=== PATIENT | male | born 1930 | race Caucasian/White ===

== ENCOUNTER → 2016-07-28 | Outpatient (CLI) | payer BC ==
[~2016-07-28] MED LIST: ALBU18002 INH; ALBU1AER9 INH; ASPI81TA28 PO; BENZ100C18 PO; CALC200T PO; CHOL100010 PO; DOCU100C PO; FINA5TAB4 PO; FLM4 PO; LPD600 PO; LPT10 PO; LSX20 PO; MRLP17X PO; MULT-845 PO; NITRSPR6 BU; NUTR-977 PO; PRD20 PO; RIVA1TAB4 PO; SALI1SPR3; SYMIN INH; TYLOTC500 PO; WARF1TAB PO; WARF4TAB44 PEG; ZTA10 PO
== END | disposition home or self-care (01) ==
LOC: C.RDSM 13:10
PROVIDERS: ATTEND Physical Medicine & Rehabilitation Sports Medicine
DX: T84.84XA Pain due to internal orthopedic prosthetic devices, implants and grafts, initial encounter (principal); Z96.642 Presence of left artificial hip joint; M17.9 Osteoarthritis of knee, unspecified; Y79.2 Prosthetic and other implants, materials and accessory orthopedic devices associated with adverse incidents

== ENCOUNTER 2016-08-10 12:45 | Inpatient (IN) | payer BC, OTHER ==
[~2016-08-10] VITALS: Ht 185.4 cm; Wt 73.9 kg
[~2016-08-10 12:45] MED LIST changes: -ALBU18002 INH; -BENZ100C18 PO; -LSX20 PO; -NUTR-977 PO; -PRD20 PO; -RIVA1TAB4 PO; -SYMIN INH
[2016-08-10 12:51] VITALS: Ht 185.4 cm; Wt 73.9 kg
[2016-08-10] MEDS ORDERED: SODIUM CHLORIDE 0.9% 500ML 500 ML IV STA (13:47)
--- NOTE | 2016-08-10 13:49 | EMERGENCY ROOM VISIT NOTE ---
History Report prepared by Kristine: Chante Sauer Under the Supervision of: Dr. Albert Dale M.D. First contact with patient: 13:39 Chief Complaint: SHORTNESS OF BREATH Stated Complaint: CHRONIC COUGH, SOB, DIZZY, FATIGUE Nursing Triage Summary: Triage Note: Pt reports shortness of breath and dry cough x 1 week. pt reports using inahler at home with no relief. pt reports lower back pain "that is indepdently of what i am here for." History of Present Illness The patient is an 86 year old male who presents to the Emergency Room with complaints of worsening shortness of breath for the past 1 week. He is accompanied by his . He states he has a chronic cough but reports his breathing has been worsening recently. His regular inhaler has provided no relief. He also complains of dizziness, fatigue and low back pain, but reports his back pain is chronic. He states "I just have no energy". He denies any recent melena or hematochezia. He saw his PCP, Dr. Chris, recently and underwent some medication changes, stating he was placed on Celebrex. The patient uses a bi-pap machine at night but denies using any Oxygen regularly. He reports he has been finding it difficult to eat recently as well, stating he has no appetite. He denies any recent headaches, falls or trauma. 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 A total of 10 systems reviewed and were otherwise negative. 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 Family History FHx: pneumonia Heart disease Social History Smoking Status: Never Smoker Alcohol Use: none Drug Use: none Marital Status: Housing Status: lives with family Occupation Status: retired Current/Historical Medications Scheduled Acetaminophen (Tylenol), 100 MG PO BID Albuterol Sulfate (Proair Respiclick), 2 PUFFS INH DAILY Aspirin (Aspirin Ec), 81 MG PO DAILY Atorvastatin (Atorvastatin Calcium), 10 MG PO DAILY Calcium Carbonate-Vitamin D (Oscal 500/200 D-3), 1 TAB PO BID Cholecalciferol (Vitamin D), 4,000 UNITS PO DAILY Docusate Sodium (Stool Softener), 200 MG PO BID Ezetimibe (Zetia), 10 MG PO DAILY Finasteride (Proscar), 5 MG PO DAILY Multiple Vitamins W/ Minerals (Centrum Silver Adult 50+), 1 TAB PO DAILY Rivaroxaban (Xarelto), 20 MG PO DAILY Saline (Saline Nasal [place]), 1 SPRAY NA HS Tamsulosin HCl (Tamsulosin HCl), 0.4 MG PO DAILY Scheduled PRN Nitroglycerin (Nitrolingual 60 [place]), 1 SPRAY BU UD PRN for Chest Pain Polyethylene (Miralax), 17 GM PO DAILY PRN for Constipation Allergies Coded Allergies: Adhesives (Verified Allergy, Mild, RASH, 10/27/14) Mercury (Verified Allergy, Unknown, rash, 10/27/14) patient Naproxen (Verified Allergy, Unknown, unknown, 10/27/14) patient Physical Exam Vital Signs Date Time Temp Pulse Resp B/P Pulse Ox O2 Delivery O2 Flow Rate FiO2 08/10/16 14:24 70 18 154/55 95 Room Air 08/10/16 13:27 97 Nasal Cannula 2.0 08/10/16 13:27 91 Room Air 08/10/16 13:27 65 08/10/16 12:51 36.4 93 20 155/63 97 Room Air Physical Exam GENERAL: Patient is elderly and chronically unwell appearing. HEENT: No acute trauma, normocephalic atraumatic, mucous membranes dry, no nasal congestion, no scleral icterus. NECK: No stridor, no adenopathy, no meningismus, trachea is midline. LUNGS: No dyspnea. Clear to auscultation and equal bilaterally. No wheeze, no rhonchi. HEART: Regular rate, irregular rhythm. No murmurs, rubs, gallops appreciated. ABDOMEN: Soft, nontender, bowel sounds positive, no masses appreciated, no peritonitis. BACK: No midline tenderness, no CVA tenderness EXTREMITIES: Normal motion all extremities, no cyanosis, no edema. NEUROLOGIC: Alert and oriented, no acute motor or sensory deficits, no focal weakness, cranial nerves grossly intact. SKIN: Poor skin turgor. No rash, no jaundice, no diaphoresis. Medical Decision & Procedures ER Provider Diagnostic Interpretation: This X-Ray was reviewed and interpreted by myself and the radiologist. CHEST ONE VIEW PORTABLE IMPRESSION: Diffuse interstitial and vascular thickening with patchy densities within the right lung and trace bilateral pleural effusions. This most likely represents moderate pulmonary edema. A pneumonia could also this similar appearance but is considered less likely. Recommend follow-up to resolution. Electronically signed by: Augustine Karimi M.D. 08/10/2016 2:45 PM Laboratory Results 08/10/16 14:10 Red Blood Count 2.99, Mean Corpuscular Volume 111.4, Mean Corpuscular Hemoglobin 36.1, Mean Corpuscular Hemoglobin Concent 32.4, Mean Platelet Volume 11.0, Neutrophils (%) (Auto) 69.9, Lymphocytes (%) (Auto) 19.9, Monocytes (%) ( Auto) 6.6, Eosinophils (%) (Auto) 1.8, Basophils (%) (Auto) 0.3, Neutrophils # ( Auto) 4.80, Lymphocytes # (Auto) 1.36, Monocytes # (Auto) 0.45, Eosinophils # ( Auto) 0.12, Basophils # (Auto) 0.02 08/10/16 14:10 Test 08/10/16 14:05 08/10/16 14:10 Urine Color DK YELLOW Urine Appearance CLEAR (CLEAR) Urine pH 5.5 (4.5-7.5) Urine Specific [place] 1.020 (1.000-1.030) Urine Protein NEG (NEG) Urine Glucose (UA) NEG (NEG) Urine Ketones NEG (NEG) Urine Occult Blood NEG (NEG) Urine Nitrite NEG (NEG) Urine Bilirubin NEG (NEG) Urine Urobilinogen NEG (NEG) Urine Leukocyte Esterase NEG (NEG) Urine WBC (Auto) 0 /hpf (0-5) Urine RBC (Auto) 0-4 /hpf (0-4) Urine Hyaline Casts (Auto) 0 /lpf (0-5) Urine Epithelial Cells (Auto) 0-5 /lpf (0-5) Urine Bacteria (Auto) NEG (NEG) White Blood Count 6.85 K/uL (4.8-10.8) Red Blood Count 2.99 M/uL (4.7-6.1) Hemoglobin 10.8 g/dL (14.0-18.0) Hematocrit 33.3 % (42-52) Mean Corpuscular Volume 111.4 fL (80-100) Mean Corpuscular Hemoglobin 36.1 pg (25-34) Mean Corpuscular Hemoglobin Concent 32.4 g/dl (32-36) Platelet Count 152 K/uL (130-400) Mean Platelet Volume 11.0 fL (7.4-10.4) Neutrophils (%) (Auto) 69.9 % Lymphocytes (%) (Auto) 19.9 % Monocytes (%) (Auto) 6.6 % Eosinophils (%) (Auto) 1.8 % Basophils (%) (Auto) 0.3 % Neutrophils # (Auto) 4.80 K/uL (1.4-6.5) Lymphocytes # (Auto) 1.36 K/uL (1.2-3.4) Monocytes # (Auto) 0.45 K/uL (0.11-0.59) Eosinophils # (Auto) 0.12 K/uL (0-0.5) Basophils # (Auto) 0.02 K/uL (0-0.2) RDW Standard Deviation 64.3 fL (36.4-46.3) RDW Coefficient of Variation 16.2 % (11.5-14.5) Immature Granulocyte % (Auto) 1.5 % Immature Granulocyte # (Auto) 0.10 K/uL (0.00-0.02) Nucleated RBC Absolute Count (auto) 0.07 K/uL (0-0) Nucleated Red Blood Cells % 1.1 % Polychromasia 1+ Macrocytosis PRESENT Prothrombin Time 12.7 SECONDS (9.0-12.0) Prothromb Time International Ratio 1.2 (0.9-1.1) Activated Partial Thromboplast Time 28.7 SECONDS (21.0-31.0) Partial Thromboplastin Ratio 1.1 Anion Gap 9.0 mmol/L (3-11) Est Creatinine Clear Calc Drug Dose 46.4 ml/min Estimated GFR () 62.6 Estimated GFR (Non- 54.0 BUN/Creatinine Ratio 18.3 (10-20) Calcium Level 8.8 mg/dl (8.5-10.1) Phosphorus Level 2.7 mg/dl (2.5-4.9) Magnesium Level 2.2 mg/dl (1.8-2.4) Total Bilirubin 1.0 mg/dl (0.2-1) Direct Bilirubin 0.3 mg/dl (0-0.2) Aspartate Amino Transf (AST/SGOT) 40 U/L (15-37) Alanine Aminotransferase (ALT/SGPT) 29 U/L (12-78) Alkaline Phosphatase 110 U/L (45-117) Total Creatine Kinase 39 U/L (39-308) Creatine Kinase MB 1.4 ng/ml (0.5-3.6) Creatine Kinase MB Ratio 3.6 (0-3.0) Troponin I 0.021 ng/ml (0-0.045) Pro-B-Type Natriuretic Peptide 8053 pg/ml (0-1800) Total Protein 7.4 gm/dl (6.4-8.2) Albumin 2.5 gm/dl (3.4-5.0) Lipase 84 U/L (73-393) Laboratory results as reviewed by me. Medications Administered Medications (Trade) Dose Ordered Sig/Melissa Route Start Time Stop Time Status Last Admin Dose Admin Sodium Chloride (Nss 500ml) 500 ml @ 999 mls/hr Q31M STAT IV 08/10/16 13:47 08/10/16 14:17 DC 08/10/16 14:20 999 MLS/HR ECG Indication: SOB/dyspnea Rate (beats per minute): 68 Rhythm: other (ventricularly paced) Findings: no acute ischemic change, no ectopy ED Course 1341: The patient was evaluated in room A10. A complete history and physical exam was performed. 1347: NSS 500 ml @ 999 mls/hr IV. 1510: I reevaluated the patient. His Oxygen was approximately 89% on room air on initial reevaluation. Oxygen provided good improvement of this. I discussed the patients results and his states she thinks the patient needs to be kept in the hospital for further evaluation. I will contact the hospital medicine team. 1528: I discussed the patients case with Dr. Garcia, [facility] Hospitalist. The patient will be further evaluated. Medical Decision Differential: Sepsis, Infectious (UTI/Pneumonia/Meningitis/etc), Metabolic/ Electrolyte Abnormality, Cardiac, Hepatic, Endocrine, Toxicologic, Neurologic, amongst other pathologies entertained. 86 yr old male who is malnutritioned and appears intravascularly depleted arrives for shob and weakness. Elderly and chronically unwell appearing. CXR with pulmonary edema thus given small bolus of fluid at 500 cc and will hold on further hydration. Labs look ok currently. He is too weak to get around at home and with shob suspect pulm edema the cause, though why the sudden edema unclear. Will bring in for further evaluation and monitoring at request of family. Consults Time Called: 1519 Consulting Physician: Dr. Garcia, [facility] Hospitalist Returned Call: 1528 I discussed the patients case with Dr. Garcia [facility] Hospitalist. The patient will be further evaluated. Impression Primary Impression: Pulmonary edema Scribe Attestation The scribe's documentation has been prepared under my direction and personally reviewed by me in its entirety. I confirm that the note above accurately reflects all work, treatment, procedures, and medical decision making performed by me. Departure Information Dispostion Being Evaluated By Hospitalist Referrals Colby Chris M.D. (PCP) Patient Instructions My [facility] Problem Qualifiers Primary Impression: Pulmonary edema Chronicity: acute Qualified Codes: J81.0 - Acute pulmonary edema
[2016-08-10 14:28] LABS: BASO % 0.3 %; BASO ABS # 0.02 K/uL (0-0.2); EOS % 1.8 %; HEMATOCRIT 33.3 % (42-52); IG% 1.5 %; LYMPH % 19.9 %; LYMPH ABS # 1.36 K/uL (1.2-3.4); MEAN CELL VOLUME 111.4 fL (80-100); MEAN CORPUSCULAR HEMOGLOBIN 36.1 pg (25-34); MEAN CORPUSCULAR HGB CONC 32.4 g/dl (32-36); MONO % 6.6 %; NEUT % 69.9 %; PLATELET COUNT 152 K/uL (130-400); RED BLOOD COUNT 2.99 M/uL (4.7-6.1); WHITE BLOOD COUNT 6.85 K/uL (4.8-10.8)
[2016-08-10 14:37] LABS: INR 1.2 (0.9-1.1); PARTIAL THROMBOPLASTIN RATIO 1.1; PROTHROMBIN TIME (PATIENT) 12.7 SECONDS (9.0-12.0)
[2016-08-10 14:38] LABS: URINE APPEARANCE CLEAR (CLEAR); URINE BILIRUBIN NEG (NEG); URINE COLOR DK YELLOW; URINE EPITHELIAL CELL AUTO 0-5 /lpf (0-5); URINE NITRITE NEG (NEG); URINE PH 5.5 (4.5-7.5); UROBILINOGEN NEG (NEG); ZZUR CULT IF INDIC CLEAN CATCH NO
[2016-08-10 14:40] LABS: MANUAL MICROSCOPIC REQUIRED? NO; REVIEW REQ? NO
[2016-08-10 14:44] LABS: BUN/CREATININE RATIO 18.3 (10-20); CALCIUM 8.8 mg/dl (8.5-10.1); CREATININE 1.2 mg/dl (0.60-1.40); MAGNESIUM 2.2 mg/dl (1.8-2.4); POTASSIUM 4.2 mmol/L (3.5-5.1)
[2016-08-10] MEDS ORDERED: RIVA1TAB4 PO (14:45)
[2016-08-10] MEDS ORDERED: ALBU18002 INH (14:45)
[2016-08-10] MEDS ORDERED: CHOL100010 PO (14:45)
--- NOTE | 2016-08-10 14:46 | DIAGNOSTIC IMAGING REPORT ---
CHEST ONE VIEW PORTABLE HISTORY: Generalized Weakness COMPARISON: Chest 10/27/2014. FINDINGS: No pneumothorax. The heart is mildly enlarged. There are poststernotomy changes and a left-sided dual-chamber pacemaker. Trace bilateral pleural effusions. Diffuse interstitial and vascular thickening with patchy densities within the right lung. This has developed in the interval. Partially visualized cervical spinal fusion hardware. IMPRESSION: Diffuse interstitial and vascular thickening with patchy densities within the right lung and trace bilateral pleural effusions. This most likely represents moderate pulmonary edema. A pneumonia could also this similar appearance but is considered less likely. Recommend follow-up to resolution. Electronically signed by: Augustine Karimi M.D. 08/10/2016 2:45 PM Dictated Date/Time: 08/10/2016 2:42 PM
[2016-08-10 14:47] LABS: CKMB/CK RATIO 3.6 (0-3.0); PHOSPHORUS 2.7 mg/dl (2.5-4.9)
[2016-08-10 14:52] LABS: COMPLETE YES; POLYCHROMASIA 1+
[2016-08-10] MEDS ORDERED: NITROGLYCERIN SL SPR 4.9 GM BTL SL PRN (16:15)
[2016-08-10] MEDS ORDERED: FUROSEMIDE INJ 40 MG in SYRINGE 0 ML IV ONE (16:15)
[2016-08-10] MEDS ORDERED: POLYETHYLENE (MIRALAX) 17 GM PACK PO PRN ×2 (16:15→16:30)
--- NOTE | 2016-08-10 16:20 | History and Physical ---
History & Physical Date & Time of Service: Aug 10, 2016 at 16:20 Chief Complaint: Chronic Cough, Sob, Dizzy, Fatigue Primary Care Physician: Colby Cho M.D. 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 Status: Chronic (10) OSTEOPOROSIS NOS Status: Chronic (11) SPINAL STENOSIS-LUMBAR Status: Chronic Family History FHx: pneumonia Heart disease Social History Smoking Status: Never Smoker Drug Use: none Marital Status: Occupational Status: retired Immunizations History of Influenza Vaccine: Yes History of Tetanus Vaccine?: Unknown History of Pneumococcal: Yes History of Hepatitis B Vaccine: Unknown Multi-Drug Resistant Organisms History of MDRO: No Allergies Coded Allergies: Adhesives (Verified Allergy, Mild, RASH, 10/27/14) Mercury (Verified Allergy, Unknown, rash, 10/27/14) patient Naproxen (Verified Allergy, Unknown, unknown, 10/27/14) patient Home Medications Scheduled Acetaminophen (Tylenol), 100 MG PO BID Albuterol Sulfate (Proair Respiclick), 2 PUFFS INH DAILY Aspirin (Aspirin Ec), 81 MG PO DAILY Atorvastatin (Atorvastatin Calcium), 10 MG PO DAILY Calcium Carbonate-Vitamin D (Oscal 500/200 D-3), 1 TAB PO BID Cholecalciferol (Vitamin D), 4,000 UNITS PO DAILY Docusate Sodium (Stool Softener), 200 MG PO BID Ezetimibe (Zetia), 10 MG PO DAILY Finasteride (Proscar), 5 MG PO DAILY Multiple Vitamins W/ Minerals (Centrum Silver Adult 50+), 1 TAB PO DAILY Rivaroxaban (Xarelto), 20 MG PO DAILY Saline (Saline Nasal [place]), 1 SPRAY NA HS Tamsulosin HCl (Tamsulosin HCl), 0.4 MG PO DAILY Scheduled PRN Nitroglycerin (Nitrolingual 60 [place]), 1 SPRAY BU UD PRN for Chest Pain Polyethylene (Miralax), 17 GM PO DAILY PRN for Constipation Physical Exam Vital Signs Date Time Temp Pulse Resp B/P Pulse Ox O2 Delivery O2 Flow Rate FiO2 08/10/16 14:24 70 18 154/55 95 Room Air 08/10/16 13:27 97 Nasal Cannula 2.0 08/10/16 13:27 91 Room Air 08/10/16 13:27 65 08/10/16 12:51 36.4 93 20 155/63 97 Room Air Diagnostics Laboratory Results Results Past 24 Hours Test 08/10/16 14:05 08/10/16 14:10 Range/Units Urine Color DK YELLOW Urine Appearance CLEAR CLEAR Urine pH 5.5 4.5-7.5 Urine Specific [place] 1.020 1.000-1.030 Urine Protein NEG NEG Urine Glucose (UA) NEG NEG Urine Ketones NEG NEG Urine Occult Blood NEG NEG Urine Nitrite NEG NEG Urine Bilirubin NEG NEG Urine Urobilinogen NEG NEG Urine Leukocyte Esterase NEG NEG Urine WBC (Auto) 0 0-5 /hpf Urine RBC (Auto) 0-4 0-4 /hpf Urine Hyaline Casts (Auto) 0 0-5 /lpf Urine Epithelial Cells (Auto) 0-5 0-5 /lpf Urine Bacteria (Auto) NEG NEG White Blood Count 6.85 4.8-10.8 K/uL Red Blood Count 2.99 4.7-6.1 M/uL Hemoglobin 10.8 14.0-18.0 g/dL Hematocrit 33.3 42-52 % Mean Corpuscular Volume 111.4 80-100 fL Mean Corpuscular Hemoglobin 36.1 25-34 pg Mean Corpuscular Hemoglobin Concent 32.4 32-36 g/dl Platelet Count 152 130-400 K/uL Mean Platelet Volume 11.0 7.4-10.4 fL Neutrophils (%) (Auto) 69.9 % Lymphocytes (%) (Auto) 19.9 % Monocytes (%) (Auto) 6.6 % Eosinophils (%) (Auto) 1.8 % Basophils (%) (Auto) 0.3 % Neutrophils # (Auto) 4.80 1.4-6.5 K/uL Lymphocytes # (Auto) 1.36 1.2-3.4 K/uL Monocytes # (Auto) 0.45 0.11-0.59 K/uL Eosinophils # (Auto) 0.12 0-0.5 K/uL Basophils # (Auto) 0.02 0-0.2 K/uL RDW Standard Deviation 64.3 36.4-46.3 fL RDW Coefficient of Variation 16.2 11.5-14.5 % Immature Granulocyte % (Auto) 1.5 % Immature Granulocyte # (Auto) 0.10 0.00-0.02 K/uL Nucleated RBC Absolute Count (auto) 0.07 0-0 K/uL Nucleated Red Blood Cells % 1.1 % Polychromasia 1+ Macrocytosis PRESENT Prothrombin Time 12.7 9.0-12.0 SECONDS Prothromb Time International Ratio 1.2 0.9-1.1 Activated Partial Thromboplast Time 28.7 21.0-31.0 SECONDS Partial Thromboplastin Ratio 1.1 Sodium Level 139 136-145 mmol/L Potassium Level 4.2 3.5-5.1 mmol/L Chloride Level 105 98-107 mmol/L Carbon Dioxide Level 25 21-32 mmol/L Anion Gap 9.0 3-11 mmol/L Blood Urea Nitrogen 22 7-18 mg/dl Creatinine 1.20 0.60-1.40 mg/dl Est Creatinine Clear Calc Drug Dose 46.4 ml/min Estimated GFR () 62.6 Estimated GFR (Non- 54.0 BUN/Creatinine Ratio 18.3 10-20 Random Glucose 95 70-99 mg/dl Calcium Level 8.8 8.5-10.1 mg/dl Phosphorus Level 2.7 2.5-4.9 mg/dl Magnesium Level 2.2 1.8-2.4 mg/dl Total Bilirubin 1.0 0.2-1 mg/dl Direct Bilirubin 0.3 0-0.2 mg/dl Aspartate Amino Transf (AST/SGOT) 40 15-37 U/L Alanine Aminotransferase (ALT/SGPT) 29 12-78 U/L Alkaline Phosphatase 110 45-117 U/L Total Creatine Kinase 39 39-308 U/L Creatine Kinase MB 1.4 0.5-3.6 ng/ml Creatine Kinase MB Ratio 3.6 0-3.0 Troponin I 0.021 0-0.045 ng/ml Pro-B-Type Natriuretic Peptide 8053 0-1800 pg/ml Total Protein 7.4 6.4-8.2 gm/dl Albumin 2.5 3.4-5.0 gm/dl Lipase 84 73-393 U/L Impression Assessment and Plan admit #[id number]
[2016-08-10] MEDS ORDERED: IV FLUIDS COMPLETED PRN (16:30)
[2016-08-10] MEDS ORDERED: ALUMINUM/MAGNESIUM/SIMETH (MAALOX MAX) 30 ML UDC PO PRN (16:30)
[2016-08-10] MEDS ORDERED: MAGNESIUM HYDROXIDE SUSP 30 ML UDC PO PRN (16:30)
[2016-08-10] MEDS ORDERED: ONDANSETRON INJ 2 MG/ML 2 ML VIAL IV PRN (16:30)
[2016-08-10] MEDS ORDERED: FUROSEMIDE 40 MG/4 ML VIAL ONE (17:16)
--- NOTE | 2016-08-10 17:21 | HISTORY & PHYSICAL EXAMINATION ---
DATE OF ADMISSION: 08/10/2016 CHIEF COMPLAINT: Cough and weakness. HISTORY OF PRESENT ILLNESS: The patient is a very pleasant 86-year-old male accompanied by his significant other who notes that over about the last 2 weeks, he has just generally been feeling worse. He has got a dry cough. His breathing does not feel right, although he is hard pressed to truly call it shortness of breath. He denies orthopnea but does note that he is always wearing his BiPAP whenever he is lying down. He notes a little bit of edema in his legs that is new but no weight gain and in fact if anything, he is worried about losing weight. He has had a poor appetite. He has had no fevers, chills, or sweats save 1 chill a couple of weeks ago, whenever he was out on a very cold day for an appointment but no other chills or sweats. He does note he has been running a low-grade temperature of about 100 and otherwise has just generally been feeling rundown. REVIEW OF SYSTEMS: Otherwise negative except for as above. PAST MEDICAL HISTORY: Includes chronic kidney disease, probably around stage III with a baseline creatinine of 1.3, atrial fibrillation, coronary artery disease status post CABG, hyperlipidemia, BPH, osteoporosis, lumbar spinal stenosis, obstructive sleep apnea, on BiPAP, glaucoma, actinic keratoses, basal cell carcinoma of the skin, chronic back pain, peripheral vascular disease, polyneuropathy, hemorrhoids and constipation with prior fecal impactions. PAST SURGICAL HISTORY: Includes CABG, back surgeries, pacemaker placement. SOCIAL HISTORY: Lives at the [facility] with his . No tobacco. No significant alcohol, no drugs. ALLERGIES: INCLUDE ADHESIVES, MERCURY AND NAPROSYN. CURRENT MEDICATIONS: Albuterol 90 mcg as needed for shortness of breath or wheeze, aspirin 81 mg daily, Lipitor 10 mg daily. He had just recently been on Celebrex for about 3 weeks, stopped that about 4 days ago as he thought it might be the culprit in his shortness of breath. Centrum Silver 1 tab daily, Zetia 10 mg daily, Proscar 5 mg daily, vitamin D3 4000 international units daily, nitroglycerin spray under the tongue as needed for angina, [place] plus D 500/200 one tab b.i.d., Tylenol 500 mg p.r.n. pain, Colace 100 mg daily, Flomax 0.4 mg daily, and Xarelto 20 mg daily. FAMILY HISTORY: His brother had diabetes. Dad had heart disease. PHYSICAL EXAMINATION: VITAL SIGNS: Temp 36.4, pulse 93, respiratory rate 20, blood pressure 155/63, 97% on room air. GENERAL: He is awake, alert, oriented x3, fatigued, but otherwise in no acute distress. HEENT: Normocephalic, atraumatic. Mucous membranes are moist. CARDIOVASCULAR: Irregularly irregular, somewhat distant but no rubs, murmurs, or gallops. LUNGS: Show scattered rales throughout. No real pattern to it. He has got a reasonable air entry, maybe slightly diminished bibasilar. No accessory muscle use. No respiratory distress and he does have a dry cough during the interview. ABDOMEN: Soft, nondistended, nontender, no masses or organomegaly. EXTREMITIES: Without cyanosis or clubbing. He has trace edema with slightly tight skin, suggesting a degree of acuity. SKIN: He has no skin ulcerations. NEUROLOGIC: Shows cranial nerves II-XII to be grossly intact. Gross motor and sensory are intact. MUSCULOSKELETAL: Yields no gross lesions. MENTAL STATE: Shows good recent and remote recall. Normal mood and affect. Good judgment and insight. LABS AND DIAGNOSTICS: CBC shows a white count of 6.85, hemoglobin 10.8, platelets 152, MCV of 111, although he had a B12 about a year ago that was greater than 1000, eosinophils only 1.8%. Complete metabolic panel with sodium 139, potassium 4.2, chloride 105, CO2 25, BUN 22, creatinine 1.2, calcium 8.8, glucose 95. Phos 2.7, mag 2.2, bilirubin of 1, direct of 0.3, AST of 40, ALT of 29, alk phos 110. CK total of 39 with an MB of 1.4. Troponin 0.021. BNP of 8053, total protein 7.4, albumin 2.5, lipase 84. PT of 12.7 with an INR of 1.2. PTT 28.7. Urinalysis: Dark yellow, clear. Specific gravity 1.020. EKG is paced. Chest x-ray shows sternotomy changes and a left-sided pacemaker. Trace bilateral pleural effusions, diffuse interstitial and vascular thickening with patchy densities in the right lung that appears new compared to his previous, which was about 2 years ago. Radiology conclusion was pulmonary edema, which seems to fit the most to my review as well, although certainly is concerning also for possible interstitial pattern. ASSESSMENT AND PLAN: 1. Cough, weakness and malaise "on paper" with his chest x-ray fitting most with pulmonary edema and elevated BNP of 8000 and his cardiac history as well as his chronic kidney disease. It seems most fitting that this would be an acute exacerbation of what appears to be chronic diastolic congestive heart failure; however, he certainly does not look as short of breath as his chest x-ray would suggest, nor is he as hypoxic as I would think he would be with his chest x-ray, nor is he as edematous as I would think he would be and his lung findings are a little bit more scattered than focal rales. I discussed with the patient the concern would be pulmonary edema versus more of an interstitial lung disease or allergic pneumonitis, possibly related to the Celebrex. We discussed in terms of raw probabilities, pulmonary edema from diastolic congestive heart failure would be far more likely and then we discussed further next steps in diagnosis versus treatment. After careful discussion, we decided to initiate a therapeutic trial of Lasix. Given that his physical exam findings are rather unremarkable, we will give him 40 of Lasix now and in addition to having him reexamined in the morning, we will check a followup BNP and follow up basic metabolic panel and follow up chest x-ray. If it is very clear the Lasix has made a difference, then this will be quite consistent with congestive heart failure. Continue to treat, get an echocardiogram and manage from there as appropriate; however, if it does not really show any significant change after diuretics, I would suggest a CT of the chest to look at the lung parenchyma more clearly. He agrees with this approach. 2. Coronary artery disease. Continue his home meds. He does not show any significant findings of angina at this time. 3. Atrial fibrillation. His rate is controlled. He is anticoagulated on Xarelto. 4. Chronic kidney disease around stage III. Continue to follow with the diuretics. 5. Weight loss from poor p.o. intake. Nutrition consult. 6. Macrocytic anemia. Overall this appears stable to his previous hemoglobins with 1 outlier a year or two ago. His MCV is elevated, but he had a B12 checked that was greater than 1000, so I suspect this is chronic. 7. Deep venous thrombosis prophylaxis. Anticoagulation with Xarelto. 8. Mildly elevated AST and direct bilirubin. Follow up as an outpatient. 9. Mild to moderate protein-calorie malnutrition as manifested by an albumin of 2.5 and his weight loss. Nutrition consult. GE[place]ED
[2016-08-10 18:29] VITALS: BP 164/77; PULSE 62; TEMP 36.7; O2SAT 94
[2016-08-10] MEDS: RIVAROXABAN 10 MG TAB PO SCH (19:53)
[2016-08-10] MEDS ORDERED: ALBUTEROL HFA 8 GM INHALER INH PRN (20:15)
[2016-08-10] MEDS: SODIUM CHLORIDE 0.65% NA SOLN 45 ML (OCEAN) SCH (20:48)
[2016-08-10] MEDS: DOCUSATE SODIUM 100 MG CAP PO SCH (20:48)
[2016-08-10] MEDS: CALCIUM CARBONATE 1250MG TAB PO SCH (20:48)
[2016-08-10] MEDS ORDERED: ACETAMINOPHEN 500 MG TAB PO SCH (21:00)
[2016-08-11 00:17] VITALS: BP 169/66; PULSE 66; TEMP 37.2; O2SAT 91
[2016-08-11] MEDS: ALBUTEROL HFA 8 GM INHALER INH SCH (07:45)
[2016-08-11] MEDS: CALCIUM CARBONATE 1250MG TAB PO SCH ×2 (07:45→20:25)
[2016-08-11] MEDS: DOCUSATE SODIUM 100 MG CAP PO SCH ×2 (07:46→20:25)
[2016-08-11] MEDS: ASPIRIN 81 MG ECTAB PO SCH (07:46)
[2016-08-11] MEDS: ATORVASTATIN 10 MG TAB PO SCH (07:47)
[2016-08-11] MEDS: FINASTERIDE 5 MG TAB PO SCH (07:47)
[2016-08-11] MEDS: EZETIMIBE 10MG TAB PO SCH (07:47)
[2016-08-11] MEDS: CEROVITE ADV FORMULA TAB PO SCH (07:48)
[2016-08-11] MEDS: TAMSULOSIN HCL 0.4 MG CAP PO SCH (07:48)
[2016-08-11] MEDS: CHOLECALCIFEROL 1000 INTER.UNIT TAB PO SCH (07:48)
[2016-08-11 07:55] VITALS: BP 152/74; PULSE 65; TEMP 36.3; O2SAT 94
[2016-08-11 08:22] LABS: BUN/CREATININE RATIO 16.8 (10-20); CALCIUM 8.8 mg/dl (8.5-10.1); CREATININE 1.2 mg/dl (0.60-1.40); POTASSIUM 3.8 mmol/L (3.5-5.1)
--- NOTE | 2016-08-11 09:22 | DIAGNOSTIC IMAGING REPORT ---
CHEST 2 VIEWS ROUTINE CLINICAL HISTORY: cough, sob, f/u pulmonary edema pattern dyspnea COMPARISON STUDY: 08/10/2016 FINDINGS: Improving radiographic components of congestive failure versus pulmonary edema. Cardiac size slightly diminished. Pulmonary vasculature improved in prominence. IMPRESSION: Mildly improved components of chronic pulmonary edema versus congestive failure Electronically signed by: Ramana Michelle M.D. 08/11/2016 9:21 AM Dictated Date/Time: 08/11/2016 9:20 AM
[2016-08-11 09:31] LABS: INFLUENZA A PCR Neg for Influ A (NEG); INFLUENZA B PCR Neg for Influ B (NEG)
[2016-08-11 09:55] VITALS: O2SAT 94
--- NOTE | 2016-08-11 11:56 | Hospitalist Progress Note ---
Hospitalist Progress Note Date of Service Aug 11, 2016. (Mary Chacon PA-C) Subjective Pt evaluation today including: conversation w/ patient, physical exam, chart review, lab review, review of studies, review of inpatient medication list Pain: Mild, arthritic PO Intake: Good Voiding: no voiding problems The patient was seen and examined this morning. Pt reports his breathing is essentially unchanged, along with continued dry cough, worse with exertion, wearing Bipap at night. Still with complaints of weakness and mild dizziness. The patient got minimal sleep overnight due to lasix IV for pulmonary edema, and was up every half hour until 4 am. Pt also with complaints of arthritic pain when he goes from a laying position to sitting up, and also while he is ambulating. Pt reports celebrex was helping with this, but that this was stopped due to worsening allergic reaction to it last . All Other Systems: Reviewed and Negative (other than stated above) (Mary Chacon PA-C) Objective Vital Signs Date Time Temp Pulse Resp B/P Pulse Ox O2 Delivery O2 Flow Rate FiO2 08/11/16 09:55 94 Room Air 08/11/16 08:00 Room Air 08/11/16 07:55 36.3 65 20 152/74 94 Room Air 08/11/16 00:17 37.2 66 16 169/66 91 Room Air 08/11/16 00:15 BiPAP 08/10/16 20:00 Room Air 08/10/16 18:29 36.7 62 18 164/77 94 Room Air 08/10/16 17:26 37.0 62 20 127/72 91 Room Air 08/10/16 14:24 70 18 154/55 95 Room Air 08/10/16 13:27 97 Nasal Cannula 2.0 08/10/16 13:27 91 Room Air 08/10/16 13:27 65 08/10/16 12:51 36.4 93 20 155/63 97 Room Air (Mary Chacon PA-C) Physical Exam General Appearance: WD/WN, no apparent distress, + thin, + pertinent finding ( multiple facial scars from previous surgeries) Eyes: PERRL, EOMI ENT: hearing grossly normal, pharynx normal Neck: supple, no JVD Respiratory/Chest: no respiratory distress, no accessory muscle use, + pertinent finding (+ unproductive cough, + coarse breath sounds, no wheezing rales or rhonchi. ) Cardiovascular: regular rate, rhythm, no JVD, no murmur Abdomen: normal bowel sounds, non tender, soft, no organomegaly Extremities: non-tender, no pedal edema, no calf tenderness Neurologic/Psychiatric: alert, normal mood/affect, oriented x 3 Skin: normal color, warm/dry (Mary Chacon PA-C) Laboratory Results Last 24 Hours Test 08/10/16 14:05 08/10/16 14:10 08/10/16 19:54 08/11/16 00:00 Urine Color DK YELLOW Urine Appearance CLEAR Urine pH 5.5 Urine Specific [place] 1.020 Urine Protein NEG Urine Glucose (UA) NEG Urine Ketones NEG Urine Occult Blood NEG Urine Nitrite NEG Urine Bilirubin NEG Urine Urobilinogen NEG Urine Leukocyte Esterase NEG Urine WBC (Auto) 0 /hpf Urine RBC (Auto) 0-4 /hpf Urine Hyaline Casts (Auto) 0 /lpf Urine Epithelial Cells (Auto) 0-5 /lpf Urine Bacteria (Auto) NEG White Blood Count 6.85 K/uL Red Blood Count 2.99 M/uL Hemoglobin 10.8 g/dL Hematocrit 33.3 % Mean Corpuscular Volume 111.4 fL Mean Corpuscular Hemoglobin 36.1 pg Mean Corpuscular Hemoglobin Concent 32.4 g/dl Platelet Count 152 K/uL Mean Platelet Volume 11.0 fL Neutrophils (%) (Auto) 69.9 % Lymphocytes (%) (Auto) 19.9 % Monocytes (%) (Auto) 6.6 % Eosinophils (%) (Auto) 1.8 % Basophils (%) (Auto) 0.3 % Neutrophils # (Auto) 4.80 K/uL Lymphocytes # (Auto) 1.36 K/uL Monocytes # (Auto) 0.45 K/uL Eosinophils # (Auto) 0.12 K/uL Basophils # (Auto) 0.02 K/uL RDW Standard Deviation 64.3 fL RDW Coefficient of Variation 16.2 % Immature Granulocyte % (Auto) 1.5 % Immature Granulocyte # (Auto) 0.10 K/uL Nucleated RBC Absolute Count (auto) 0.07 K/uL Nucleated Red Blood Cells % 1.1 % Polychromasia 1+ Macrocytosis PRESENT Prothrombin Time 12.7 SECONDS Prothromb Time International Ratio 1.2 Activated Partial Thromboplast Time 28.7 SECONDS Partial Thromboplastin Ratio 1.1 Sodium Level 139 mmol/L Potassium Level 4.2 mmol/L Chloride Level 105 mmol/L Carbon Dioxide Level 25 mmol/L Anion Gap 9.0 mmol/L Blood Urea Nitrogen 22 mg/dl Creatinine 1.20 mg/dl Est Creatinine Clear Calc Drug Dose 46.4 ml/min Estimated GFR () 62.6 Estimated GFR (Non- 54.0 BUN/Creatinine Ratio 18.3 Random Glucose 95 mg/dl Calcium Level 8.8 mg/dl Phosphorus Level 2.7 mg/dl Magnesium Level 2.2 mg/dl Total Bilirubin 1.0 mg/dl Direct Bilirubin 0.3 mg/dl Aspartate Amino Transf (AST/SGOT) 40 U/L Alanine Aminotransferase (ALT/SGPT) 29 U/L Alkaline Phosphatase 110 U/L Total Creatine Kinase 39 U/L Creatine Kinase MB 1.4 ng/ml Creatine Kinase MB Ratio 3.6 Troponin I 0.021 ng/ml Pro-B-Type Natriuretic Peptide 8053 pg/ml Total Protein 7.4 gm/dl Albumin 2.5 gm/dl Lipase 84 U/L Bedside Glucose 136 mg/dl Influenza Type A (RT-PCR) Neg for Influ A Influenza Type B (RT-PCR) Neg for Influ B Test 08/11/16 07:29 08/11/16 07:39 08/11/16 11:05 Bedside Glucose 108 mg/dl 99 mg/dl Sodium Level 139 mmol/L Potassium Level 3.8 mmol/L Chloride Level 104 mmol/L Carbon Dioxide Level 28 mmol/L Anion Gap 7.0 mmol/L Blood Urea Nitrogen 20 mg/dl Creatinine 1.20 mg/dl Est Creatinine Clear Calc Drug Dose 46.4 ml/min Estimated GFR () 62.6 Estimated GFR (Non- 54.0 BUN/Creatinine Ratio 16.8 Random Glucose 101 mg/dl Calcium Level 8.8 mg/dl Pro-B-Type Natriuretic Peptide 9072 pg/ml (Mary Chacon, PAMaryC) Assessment and Plan 86 yo M with hx of CKD, stage III with a baseline creatinine of 1.3, atrial fibrillation, coronary artery disease status post CABG, hyperlipidemia, BPH, osteoporosis, lumbar spinal stenosis, obstructive sleep apnea, on BiPAP, glaucoma, actinic keratoses, basal cell carcinoma of the skin, chronic back pain, peripheral vascular disease, polyneuropathy, hemorrhoids and constipation with prior fecal impactions. Cough, weakness and malaise with CXR consistent with pulmonary edema - On admission had elevated BNP of 8000, previous cardiac history suggestive of acute diastolic CHF exacerbation. Was given dose of Lasix last evening and urine outs up to midnight were 2.1L. - BNP on admission was 8053 and on recheck has trended upward slightly - ECHO ordered to evaluate for progression of CHF - Concern that CHF is not the only factor contributing to cough, weakness and malaise. - Pulmonary edema versus more of an interstitial lung disease or allergic pneumonitis, possibly related to the Celebrex (stopped last ) seems likely with having no improvement with lasix administration. If no improvement with more lasix will consider chest CT. - Will give another small dose of lasix 20 mg IV since such good outs were obtained with 40 mg IV. - Pt uses albuterol inhaler 2 puffs before bed in the evening and cpap QHS. Will start symbicort today and assess for improvement. - Would benefit from 2 step O2 test prior to d/c. Does not wear O2 at home during the day although admits to progressive sob with exertion over the past 2 weeks. CKD Stage III, baseline Cr. ~ 1.3 - Follow daily bmp with diuretics, today 1.2 - Cr. unchanged with one time dose of lasix, given second dose of lasix now. Coronary artery disease - Continue his home meds. - Cont atorvastatin 10 mg daily, zetia 10 mg daily Atrial fibrillation - His rate is controlled - anticoagulated on Xarelto Weight loss from poor p.o. intake. Moderate protein-calorie malnutrition - Nutrition consulted - Albumin decreased to 2.5, hx of weight loss Mildly elevated AST and direct bilirubin. Follow up as an outpatient. Macrocytic anemia - Overall this appears stable to his previous hemoglobins with 1 outlier a year or two ago. His MCV is elevated, but he had a B12 checked that was greater than 1000, likely is chronic. DVT ppx: Xarelto, cont SCDs CODE STATUS: Full CODE Disposition: From the [facility], lives with . Discharge when medically stable, possible in 1-2 days (Mary Chacon PA-C) Attending Attestation: Pt seen/examined, chart reviewed, care plan d/w PA Henny Chacon. I agree w/ the mcgarry components of her documentation. Had copious diuresis overnight slept fine; denies orthopnea. still with JIMÉNEZ and mild cough. some edema. VSS no fever gen - nad neck - no obvious JVD heart - RRR lungs - decreased BS bases, no rales, no wheeze abd - soft ext - 2+ edema on right, 1+ on left BMP stable A/P: respiratory symptoms, dyspnea, etc - suspect element of acute/chronic diastolic CHF, but despite very good diuresis he feels little improved today. radiographically, however, his infiltrates look much better c/w CHF. would continue to diurese. repeat labs in am. add sed rate (if high would argue for something in addition to CHF). consider CT chest if not improving symptomatically with diuresis. echo. change to full admission status needs PT eval as well Leida HINDS MD (Zak Hinds MD)
[2016-08-11] MEDS ORDERED: FUROSEMIDE INJ 20 MG in SYRINGE 0 ML IV ONE (13:30)
[2016-08-11 13:42] VITALS: BP 131/66; PULSE 69
[2016-08-11 15:21] VITALS: BP 147/69; PULSE 75; TEMP 36.7; O2SAT 91
[2016-08-11] MEDS: RIVAROXABAN 10 MG TAB PO SCH (17:20)
[2016-08-11] MEDS: BUDESONIDE/FORMOTEROL FUMARATE 160/4.5 60 PUFFS/INHALER INH SCH (20:24)
[2016-08-11] MEDS: BOOST PLUS VANILLA PO SCH ×2 (20:25)
[2016-08-11] MEDS: SODIUM CHLORIDE 0.65% NA SOLN 45 ML (OCEAN) SCH (20:26)
--- NOTE | 2016-08-11 21:41 | Progress Note ---
Progress Note Date of Service Aug 11, 2016. Progress Note In my clinical judgment this beneficiary meets acute admission criteria, established by CMS, that includes being hospitalized through two midnights. Therefore patient is being changed from observation to admission status. Zak Hinds MD
[2016-08-11 23:55] VITALS: BP 146/56; PULSE 60; TEMP 37.1; O2SAT 90
[2016-08-12 07:28] LABS: BASO % 0.2 %; BASO ABS # 0.01 K/uL (0-0.2); EOS % 2.8 %; HEMATOCRIT 29.6 % (42-52); IG% 0.9 %; LYMPH % 22.4 %; LYMPH ABS # 1.21 K/uL (1.2-3.4); MEAN CELL VOLUME 110.9 fL (80-100); MEAN CORPUSCULAR HEMOGLOBIN 36.3 pg (25-34); MEAN CORPUSCULAR HGB CONC 32.8 g/dl (32-36); MEAN PLATELET VOLUME 10.5 fL (7.4-10.4); MONO % 7.2 %; NEUT % 66.5 %; PLATELET COUNT 147 K/uL (130-400); RED BLOOD COUNT 2.67 M/uL (4.7-6.1); WHITE BLOOD COUNT 5.39 K/uL (4.8-10.8)
[2016-08-12] MEDS: EZETIMIBE 10MG TAB PO SCH (07:29)
[2016-08-12] MEDS: FINASTERIDE 5 MG TAB PO SCH (07:29)
[2016-08-12] MEDS: DOCUSATE SODIUM 100 MG CAP PO SCH ×2 (07:30→20:41)
[2016-08-12] MEDS: CEROVITE ADV FORMULA TAB PO SCH (07:30)
[2016-08-12] MEDS: ATORVASTATIN 10 MG TAB PO SCH (07:30)
[2016-08-12] MEDS: CALCIUM CARBONATE 1250MG TAB PO SCH ×2 (07:30→20:40)
[2016-08-12] MEDS: CHOLECALCIFEROL 1000 INTER.UNIT TAB PO SCH (07:30)
[2016-08-12] MEDS: ASPIRIN 81 MG ECTAB PO SCH (07:30)
[2016-08-12] MEDS: TAMSULOSIN HCL 0.4 MG CAP PO SCH (07:30)
[2016-08-12] MEDS: BOOST PLUS VANILLA PO SCH ×4 (07:31→20:42)
[2016-08-12] MEDS: BUDESONIDE/FORMOTEROL FUMARATE 160/4.5 60 PUFFS/INHALER INH SCH ×2 (07:31→20:41)
[2016-08-12] MEDS: ALBUTEROL HFA 8 GM INHALER INH SCH (07:31)
[2016-08-12] MEDS: ACETAMINOPHEN 325 MG TAB PO PRN (07:38)
[2016-08-12 07:46] VITALS: BP 123/64; PULSE 83; TEMP 36.3; O2SAT 90
[2016-08-12 07:57] LABS: ANISOCYTOSIS PRESENT; COMPLETE YES; LARGE PLATELETS 1+
[2016-08-12 08:10] LABS: BUN/CREATININE RATIO 18.5 (10-20); CALCIUM 8.6 mg/dl (8.5-10.1); CREATININE 1.1 mg/dl (0.60-1.40); POTASSIUM 3.5 mmol/L (3.5-5.1)
--- NOTE | 2016-08-12 09:48 | Hospitalist Progress Note ---
Hospitalist Progress Note Date of Service Aug 12, 2016. (Mary Chacon PA-C) Subjective Pt evaluation today including: conversation w/ patient, physical exam, chart review, lab review, review of studies, review of inpatient medication list Pain: Low back, chronic PO Intake: Fair Voiding: no voiding problems The patient was seen and examined this morning. Pt reports his breathing may be slightly improved, but is hesitant to use the word "improved". He hasn't been exerting himself as much as normal. When PT/OT took him for a walk down the hallway, he didn't feel as winded as he has been, and that he was not as fatigued by the end. Pt normally eats breakfast and dinner, but skips lunch because of a late breakfast. He has been drinking 1-2 cans of boost at home to help with protein supplementation. Pt reports low back pain is chronic, unchanged. All Other Systems: Reviewed and Negative (other than listed above) (Mary Chacon PA-C) Objective Vital Signs Date Time Temp Pulse Resp B/P Pulse Ox O2 Delivery O2 Flow Rate FiO2 08/12/16 08:00 Room Air 08/12/16 07:46 36.3 83 20 123/64 90 Room Air 08/12/16 00:00 Room Air 08/11/16 23:55 37.1 60 20 146/56 90 Room Air 08/11/16 20:00 Room Air 08/11/16 16:00 Room Air 08/11/16 15:21 36.7 75 20 147/69 91 Room Air 08/11/16 13:42 69 131/66 08/11/16 09:55 94 Room Air (Mary Chacon PA-C) Physical Exam General Appearance: WD/WN, no apparent distress, + pertinent finding (multiple facial scars) Eyes: PERRL, EOMI ENT: hearing grossly normal, pharynx normal Neck: supple, no JVD Respiratory/Chest: lungs clear, normal breath sounds, no respiratory distress, no accessory muscle use Cardiovascular: regular rate, rhythm, no murmur Abdomen: normal bowel sounds, non tender, soft Extremities: non-tender, no pedal edema, no calf tenderness Neurologic/Psychiatric: alert, normal mood/affect, oriented x 3 Skin: normal color, warm/dry (Mary Chacon PA-C) Laboratory Results Last 24 Hours Test 08/11/16 11:05 08/11/16 16:18 08/11/16 19:57 08/12/16 07:14 Bedside Glucose 99 mg/dl 103 mg/dl 126 mg/dl White Blood Count 5.39 K/uL Red Blood Count 2.67 M/uL Hemoglobin 9.7 g/dL Hematocrit 29.6 % Mean Corpuscular Volume 110.9 fL Mean Corpuscular Hemoglobin 36.3 pg Mean Corpuscular Hemoglobin Concent 32.8 g/dl Platelet Count 147 K/uL Mean Platelet Volume 10.5 fL Neutrophils (%) (Auto) 66.5 % Lymphocytes (%) (Auto) 22.4 % Monocytes (%) (Auto) 7.2 % Eosinophils (%) (Auto) 2.8 % Basophils (%) (Auto) 0.2 % Neutrophils # (Auto) 3.58 K/uL Lymphocytes # (Auto) 1.21 K/uL Monocytes # (Auto) 0.39 K/uL Eosinophils # (Auto) 0.15 K/uL Basophils # (Auto) 0.01 K/uL RDW Standard Deviation 64.4 fL RDW Coefficient of Variation 16.4 % Immature Granulocyte % (Auto) 0.9 % Immature Granulocyte # (Auto) 0.05 K/uL Nucleated RBC Absolute Count (auto) 0.05 K/uL Nucleated Red Blood Cells % 0.9 % Large Platelets 1+ Anisocytosis PRESENT Macrocytosis PRESENT Sodium Level 139 mmol/L Potassium Level 3.5 mmol/L Chloride Level 103 mmol/L Carbon Dioxide Level 25 mmol/L Anion Gap 11.0 mmol/L Blood Urea Nitrogen 20 mg/dl Creatinine 1.10 mg/dl Est Creatinine Clear Calc Drug Dose 50.6 ml/min Estimated GFR () 69.6 Estimated GFR (Non- 60.0 BUN/Creatinine Ratio 18.5 Random Glucose 107 mg/dl Calcium Level 8.6 mg/dl Test 08/12/16 07:22 Bedside Glucose 115 mg/dl (Mary Chacon PA-C) Assessment and Plan 86 yo M with hx of CKD, stage III with a baseline creatinine of 1.3, atrial fibrillation, coronary artery disease status post CABG, hyperlipidemia, BPH, osteoporosis, lumbar spinal stenosis, obstructive sleep apnea, on BiPAP, glaucoma, actinic keratoses, basal cell carcinoma of the skin, chronic back pain, peripheral vascular disease, polyneuropathy, hemorrhoids and constipation with prior fecal impactions. Cough, weakness and malaise with CXR consistent with pulmonary edema - On admission had elevated BNP of 8000, previous cardiac history suggestive of acute diastolic CHF exacerbation. Was given another dose of Lasix 20 mg IV yesterday afternoon urine outs were 1.3 L, with a total out of 3.4 L in past 48 hours. - Will order another dose of Lasix 20 mg IV now as pt is having improvement with diuresis. Replaced potassium with 20 meq now, and then 20 meq daily to avoid potassium depletion with diuresis. - BNP on admission was 8053 and on recheck trended up slightly, likely due to lag time. - ECHO ordered to evaluate for progression of CHF- awaiting study - Pacemaker interrogation ordered - Pt uses albuterol inhaler 2 puffs before bed in the evening and cpap QHS. - Continue symbicort started 08/11 - Would benefit from 2 step O2 test prior to d/c. Does not wear O2 at home during the day although admits to progressive sob with exertion over the past 2 weeks. CKD Stage III, baseline Cr. ~ 1.3 - Follow daily bmp with diuretics, Cr. is actually slightly improved with diuresis to 1.1 today. Coronary artery disease - Continue his home meds. - Cont atorvastatin 10 mg daily, zetia 10 mg daily Atrial fibrillation - His rate is controlled - anticoagulated on Xarelto Weight loss from poor p.o. intake. Moderate protein-calorie malnutrition - Nutrition consulted - Cont boost supplementation 2 cans daily is goal - Albumin decreased to 2.5, will recheck tomorrow. Mildly elevated AST and direct bilirubin. Follow up as an outpatient. Macrocytic anemia - Overall this appears stable to his previous hemoglobins with 1 outlier a year or two ago. His MCV is elevated, but he had a B12 checked that was greater than 1000, likely is chronic. DVT ppx: Xarelto, cont SCDs CODE STATUS: Full CODE [place] . Discharge when medically stable , possible in 1-2 days (Filipowicz,Mary G., PA-C) Attending Attestation: Pt seen/examined, chart reviewed, care plan d/w RANDA Chacon. I agree w/ the mcgarry components of her documentation. Feels better. Less cough and dyspnea. Slept good last pm. VSS no fever o2 sats normal in RA gen - nad neck - maybe slight JVD sitting upright in chair heart - RRR lungs - good airation; no rales or wheeze abd - soft ext - 1+ edema on right, <1+ on left BMP stable A/P: probable acute/chronic diastolic CHF - improved. lasix IV again today await echo CKD 3 - stable pacer status - interrogate to r/o dysrhythmia (e.g. a. fib) as cause of acute CHF await PT eval likely d/c home tomorrow Leida ZACARIAS MD (Zak Zacarias MD)
[2016-08-12] MEDS ORDERED: FUROSEMIDE INJ 20 MG in SYRINGE 0 ML IV ONE (12:45)
[2016-08-12 14:59] VITALS: BP 136/56; PULSE 62; TEMP 36.6; O2SAT 96
[2016-08-12] MEDS: POTASSIUM CHLORIDE 20 MEQ TABCR PO SCH (15:32)
[2016-08-12] MEDS: RIVAROXABAN 10 MG TAB PO SCH (17:41)
[2016-08-12] MEDS: SODIUM CHLORIDE 0.65% NA SOLN 45 ML (OCEAN) SCH (20:41)
[2016-08-12 23:17] VITALS: BP 94/58; PULSE 74; TEMP 36.6; O2SAT 96
[2016-08-12 23:21] VITALS: BP 130/52; PULSE 60; TEMP 37.1; O2SAT 95
--- NOTE | 2016-08-13 07:58 | Hospitalist Progress Note ---
Hospitalist Progress Note Date of Service Aug 13, 2016. (Mary Chacon PA-C) Subjective Pt evaluation today including: conversation w/ patient, physical exam, chart review, lab review, review of studies, review of inpatient medication list Pain: None PO Intake: Good Voiding: no voiding problems The patient was seen and examined this morning. Pt reports constipation, last bowel movement was thursday. He is currently drinking milk of mag for bowels. Pt reports his breathing has "definitely improved" and does not feel as fatigued with ambulations compared to before. He is still having cough, nonproductive most of the time, but occasionally with "nasty" mucous. He is using inhalers as directed and feel this may be helping as well. Pt is awaiting echo. All Other Systems: Reviewed and Negative (other than listed above) (Mary Chacon PA-C) Objective Vital Signs Date Time Temp Pulse Resp B/P Pulse Ox O2 Delivery O2 Flow Rate FiO2 08/12/16 23:21 37.1 60 18 130/52 95 BiPAP 08/12/16 23:17 36.6 74 16 94/58 96 08/12/16 19:42 Room Air BiPAP 08/12/16 16:00 Room Air 08/12/16 14:59 36.6 62 20 136/56 96 Room Air 08/12/16 08:00 Room Air 08/12/16 07:46 36.3 83 20 123/64 90 Room Air (Mary Chacon PA-C) Physical Exam General Appearance: WD/WN, no apparent distress, + pertinent finding (multiple facial scars) Eyes: PERRL, EOMI ENT: hearing grossly normal, pharynx normal Neck: supple, no JVD Respiratory/Chest: normal breath sounds, no respiratory distress, no accessory muscle use, + pertinent finding (+ crackles at the right base) Cardiovascular: regular rate, rhythm, no murmur Abdomen: normal bowel sounds, non tender, soft, no organomegaly Extremities: non-tender, no calf tenderness, + pedal edema (1+ pitting up to mid tibial region bilaterally) Neurologic/Psychiatric: alert, normal mood/affect, oriented x 3 Skin: normal color, warm/dry (Mary Chacon PA-C) Laboratory Results Last 24 Hours Test 08/12/16 11:12 08/12/16 16:14 08/12/16 20:17 08/13/16 04:44 Bedside Glucose 110 mg/dl 130 mg/dl 129 mg/dl Test 08/13/16 07:16 Bedside Glucose 118 mg/dl (Mary Chacon PA-C) Assessment and Plan 86 yo M with hx of CKD, stage III with a baseline creatinine of 1.3, atrial fibrillation, coronary artery disease status post CABG, hyperlipidemia, BPH, osteoporosis, lumbar spinal stenosis, obstructive sleep apnea, on BiPAP, glaucoma, actinic keratoses, basal cell carcinoma of the skin, chronic back pain, peripheral vascular disease, polyneuropathy, hemorrhoids and constipation with prior fecal impactions. Cough, weakness and malaise with CXR consistent with pulmonary edema Acute exacerbation of CHF, diastolic. - On admission had elevated BNP of 8000, previous cardiac history suggestive of acute diastolic CHF exacerbation. - Continued diuresis with lasix with urine outs= ~4.5L total. Seems to have leveled out with oral intake last night. Pt has + crackles in bases and +1 pitting edema in BLE so will do another dose of IV lasix 20 mg. Pt will need oral as an outpatient - Replaced potassium with 20 meq now, and then 20 meq daily to avoid potassium depletion with diuresis. - BNP on admission was 8053 - ECHO ordered to evaluate for progression of CHF- awaiting study - Pacemaker interrogation ordered - Pt uses albuterol inhaler 2 puffs before bed in the evening and cpap QHS. - Continue symbicort started 08/11 - Would benefit from 2 step O2 test prior to d/c. Does not wear O2 at home during the day although admits to progressive sob with exertion over the past 2 weeks. CKD Stage III, baseline Cr. ~ 1.3 - Follow daily bmp with diuretics, Cr. is 1.3 today. Coronary artery disease - Continue his home meds. - Cont atorvastatin 10 mg daily, zetia 10 mg daily Atrial fibrillation - His rate is controlled - anticoagulated on Xarelto Weight loss from poor p.o. intake. Moderate protein-calorie malnutrition - Nutrition consulted - Cont boost supplementation 2 cans daily is goal - Albumin decreased to 2.5, will recheck tomorrow. Mildly elevated AST and direct bilirubin. Follow up as an outpatient. Macrocytic anemia - Overall this appears stable to his previous hemoglobins with 1 outlier a year or two ago. His MCV is elevated, but he had a B12 checked that was greater than 1000, likely is chronic. TSH and folic acid are also normal. Will need to be followed as an outpatient by PCP. Constipation: - MOM, mirilax daily, and will add dulcolax 5 mg oral tabs daily for now. - Encouraged mobility and high fiber intake. Pt has been drinking adequate amounts of fluid without restriction although has CHF exacerbation as above. DVT ppx: Xarelto, cont SCDs CODE STATUS: Full CODE [place] . Discharge when medically stable , likely today pending echo. (Mary Chacon, EMILY) Attending Attestation: Pt seen/examined, chart reviewed, care plan d/w RANDA Chacon. I agree w/ the mcgarry components of her documentation. "I feel much better." Denies orthopnea or JIMÉNEZ. Cough nearly resolved. VSS o2 sats normal in RA - 95% gen - nad neck - no JVD heart - RRR lungs - good airation; no rales or wheeze; CTA b/l abd - soft ext - 1+ edema b/l - slightly better today BMP stable - Cr 1.3 A/P: acute/chronic diastolic CHF - improved/likely resolved. echo pending lasix x 1 again repeat BMP am CKD 3 - stable pacer status - awaiting interrogation to r/o dysrhythmia (e.g. a. fib) as cause of acute CHF PT has cleared for home anticipate d/c home tomorrow Leida HINDS MD (Zak Hinds MD)
[2016-08-13] MEDS: BUDESONIDE/FORMOTEROL FUMARATE 160/4.5 60 PUFFS/INHALER INH SCH ×2 (08:01→21:45)
[2016-08-13] MEDS: FINASTERIDE 5 MG TAB PO SCH (08:02)
[2016-08-13] MEDS: ALBUTEROL HFA 8 GM INHALER INH SCH (08:02)
[2016-08-13] MEDS: TAMSULOSIN HCL 0.4 MG CAP PO SCH (08:02)
[2016-08-13] MEDS: CHOLECALCIFEROL 1000 INTER.UNIT TAB PO SCH (08:03)
[2016-08-13] MEDS: EZETIMIBE 10MG TAB PO SCH (08:03)
[2016-08-13] MEDS: ASPIRIN 81 MG ECTAB PO SCH (08:03)
[2016-08-13] MEDS: CALCIUM CARBONATE 1250MG TAB PO SCH ×2 (08:03→21:46)
[2016-08-13] MEDS: ATORVASTATIN 10 MG TAB PO SCH (08:03)
[2016-08-13] MEDS: POTASSIUM CHLORIDE 20 MEQ TABCR PO SCH (08:03)
[2016-08-13] MEDS: CEROVITE ADV FORMULA TAB PO SCH (08:03)
[2016-08-13] MEDS: DOCUSATE SODIUM 100 MG CAP PO SCH ×2 (08:03→21:46)
[2016-08-13 08:04] VITALS: BP 148/78; PULSE 78; TEMP 37; O2SAT 95
[2016-08-13] MEDS: BOOST PLUS VANILLA PO SCH ×4 (08:04→21:00)
[2016-08-13] MEDS: ACETAMINOPHEN 325 MG TAB PO PRN (08:04)
[2016-08-13 08:48] LABS: BASO % 0.2 %; BASO ABS # 0.01 K/uL (0-0.2); EOS % 2.9 %; HEMATOCRIT 32.5 % (42-52); IG% 1.4 %; LYMPH % 19.3 %; LYMPH ABS # 0.95 K/uL (1.2-3.4); MEAN CELL VOLUME 112.5 fL (80-100); MEAN PLATELET VOLUME 10.5 fL (7.4-10.4); MONO % 5.9 %; NEUT % 70.3 %; PLATELET COUNT 145 K/uL (130-400); RED BLOOD COUNT 2.89 M/uL (4.7-6.1); WHITE BLOOD COUNT 4.91 K/uL (4.8-10.8)
[2016-08-13 09:18] LABS: COMPLETE YES; GIANT PLATELETS 1+; POLYCHROMASIA 1+
[2016-08-13 09:22] LABS: BUN/CREATININE RATIO 15.3 (10-20); CREATININE 1.3 mg/dl (0.60-1.40); MAGNESIUM 2.1 mg/dl (1.8-2.4); POTASSIUM 3.8 mmol/L (3.5-5.1)
[2016-08-13 10:27] VITALS: O2SAT 95
[2016-08-13] MEDS ORDERED: FUROSEMIDE INJ 20 MG in SYRINGE 0 ML IV ONE (10:30)
--- NOTE | 2016-08-13 13:18 | Discharge Instructions ---
Discharge Instructions Admission Reason for Admission: Pulmonary Edema (Mary Chacon PA-C) Discharge Discharge Diagnosis / Problem: Acute exacerbation of diastolic CHF (Mary Chacon PA-C) Discharge Goals Goal(s): Decrease discomfort, Improve function, Increase independence, Improve disease control, Improve nutritional status (Mary Chacon PA-C) Activity Recommendations Activity Limitations: resume your previous activity Lifting Limitations: no more than 10 pounds Exercise/Sports Limitations: as tolerated Shower/Bathe: no limitations (with assistance) Driving or Machine Use: Do not drive until follow up with family physician, if applicable . (Mary Chacon PA-C) Instructions / Follow-Up Instructions / Follow-Up You were admitted to [facility] with shortness of breath, fatigue, weakness and diagnosed with acute exacerbation of diastolic CHF (congestive heart failure). During your stay here you were treated with intravenous lasix for diuresis ( removal of excess fluid through urination) which worked very well. You have been started on oral lasix on an ass needed basis. Please see specific CHF instructions below. - You were seen by Physical therapy during admission and ambulated with walker without difficulty. - Imaging studies which were completed include CXR which initially showed pulmonary edema, on 08/11 a second CXR showed improvement. - Continue taking other medications as prescribed. You were diagnosed with allergic pneumonitis likely from Celebrex so were started on a steriod taper (Prednisone) - Continue taking Prednisone 40 mg as directed - Repeat CXR should be obtained in 4 weeks - Follow up with Dr. Cordoba with pulmonology - Continue using inhalers as directed Please have your blood work followed by Dr. Chris, specifically MCV, as this was elevated during admission. Follow up with your PCP within 1 week. CHF Specific Instructions: Call 911 and go to the Emergency Room if: * You have tightness or pain in your chest that does not go away with rest or Nitroglycerin * You are very short of breath even with rest Call your doctor if any of the following symptoms or problems start or get worse: * Shortness of breath or difficulty breathing * Wake up at night short of breath * Chest pain * Cough * Swelling of your hands, fee, or legs * More fatigued or tired with your normal activity * Palpitations - sudden fast heart beats WEIGHT * Weigh yourself every morning after using the bathroom. * Use the same scale. * Wear the same amount of clothing. * Write your weight down on your chart. * Call your doctor if you gain more than 2-3 pounds in 1-2 days or more than 5 pounds within 1 week. MEDICATIONS * Use this discharge instruction sheet for instructions. * Take your medications at the time your doctor ordered. * Do not skip a dose of your medicines. * If you miss a dose of medicine, take as soon as possible, but DO NOT DOUBLE A DOSE. * Read your medicine information when you get home. * Know all of the side effects of your medicine. * Call your doctor's office if you have any side effects. * Be sure all of your doctors know what medicine and herbs you take (including cold, flu, and herbal medicine). * Pain Medicine: If you do not get relief from your pain, please call your doctor for help. Take the following with you to your follow-up doctor appointments: * Weight Chart * Medication List * List of questions Do not drink excessive alcohol, beer or wine. (Mary Chacon PA-C) Current Hospital Diet Patient's current hospital diet: AHA Diet (Heart Healthy), Low Sodium Diet (2gm Na) (Mary Chacon PA-C) Discharge Diet Recommended Diet: AHA Diet (Heart Healthy) Fluid Restriction: 1500 ml (6 cups) (Mary Chacon PA-C) Procedures Procedures Performed: 08/14: Pacemaker interrogation 08/13: Echocardiogram 08/10: CXR 08/11: CXR (Mary Chacon PA-C) Pending Studies Studies pending at discharge: no (Mary Chacon PA-C) Medical Emergencies . Who to Call and When: Medical Emergencies: If at any time you feel your situation is an emergency, please call 911 immediately. . (Mary Chacon PA-C) Non-Emergent Contact Non-Emergency issues call your: Primary Care Provider Call Non-Emergent contact if: temperature is above 100.5, your pain is not controlled, you have any medication questions Worsening shortness of breath, difficulty breathing, chest pain, palpitations, flutter, abdominal pain, nausea, vomiting, diarrhea, constipation, or if you have other questions or concerns regarding your health. . (Mary Chacon PA-C) Past History Medical & Surgical History: (1) Acute on chronic diastolic (congestive) heart failure (2) AORTOCORONARY BYPASS (3) CARDIAC PACEMAKER IN SITU (4) CORONARY ATHEROSCLEROSIS OF [place] CORONARY VESSEL (5) HYPERLIPIDEMIA NEC/NOS (6) HYPERTENSION NOS (7) Atrial fibrillation (8) Back pain, acute (9) Weakness (10) Dehydration (11) Constipation (Mary Chacon PA-C) . "Provider Documentation" section prepared by Henny Chacon. (Mary Chacon PA-C) Attending Attestation: Pt seen & examined with RANDA Chacon on day of discharge and I agree with her discharge instructions as outlined. aZk Hinds MD (Zak Hinds MD) VTE Core Measure Inpt VTE Proph given/why not?: Other Anticoagulation (xarelto), T.E.D. Stockings, SCD's (Mary Chacon PA-C)
--- NOTE | 2016-08-13 13:35 | Discharge Summary ---
Discharge Summary Date of Service Aug 13, 2016. (Mary Chacon PA-C) Discharge Summary Admission Date: Aug 11, 2016 at 21:40 Discharge Date: Aug 13, 2016 Discharge Disposition: Personal care ([facility]) Principal Diagnosis: Acute exacerbation of diastolic CHF Problems/Secondary Diagnoses: CKD, stage III with a baseline creatinine of 1.3, atrial fibrillation on xarelto, coronary artery disease status post CABG, hyperlipidemia, BPH, osteoporosis, lumbar spinal stenosis, obstructive sleep apnea, on CPAP, glaucoma, actinic keratoses, basal cell carcinoma of the skin, chronic back pain, peripheral vascular disease, polyneuropathy, hemorrhoids and constipation with prior fecal impactions. Immunizations: Have You Had Influenza Vaccine: Yes History of Tetanus Vaccine?: Unknown History of Pneumococcal: Yes History of Hepatitis B Vaccine: Unknown Procedures: Echocardiogram 08/13 Interpretation Summary * Name: LAURA CUNNINGHAM Study Date: 08/13/2016 03:31 PM BP: 148/78 mmHg * Patient Location: [facility]\S\2 HR: 63 * : 1930 (M/d/yyyy) Gender: Male Height: 73 in * Age: 86 yrs Ethnicity: [place] Weight: 166 lb * Ordering Physician: Zak Hinds * Referring Physician: Clyde Garcia D.O. * Performed By: Aretha Tovar RCS * * Reason For Study: CHF * BSA: 2.0 m2 * -- Conclusions -- * Left ventricular systolic function is low normal. * The left atrium is mildly dilated. * Aortic valve sclerosis moderate, without significant aortic valvular stenosis. * There is moderate mitral regurgitation. * Right ventricular systolic pressure is elevated at 30-40mmHg. * Compared to a study from 03/2014, there appears to be a slight reduction in LV function Procedure Details * A complete two-dimensional transthoracic echocardiogram was performed (2D, M-mode, Doppler and color flow Doppler). Left Ventricle * The left ventricle is grossly normal size. * There is borderline concentric left ventricular hypertrophy. * Left ventricular systolic function is low normal. * Ejection Fraction = 50-55%. * Mild global hypokinesis with obvious septal dyskinesis Right Ventricle * The right ventricle is grossly normal size. * There is a pacemaker lead in the right ventricle. Atria * The left atrium is mildly dilated. * Right atrial size is normal. Mitral Valve * The mitral valve is grossly normal. * There is moderate mitral regurgitation. Tricuspid Valve * The tricuspid valve is not well visualized, but is grossly normal. * There is mild tricuspid regurgitation. * Right ventricular systolic pressure is elevated at 30-40mmHg. Aortic Valve * Aortic valve sclerosis moderate, without significant aortic valvular stenosis. * No hemodynamically significant valvular aortic stenosis. * There is no significant aortic regurgitation. Great Vessels * The aortic root is normal size. Pericardium/Pleural * There is no pericardial effusion. Great Vessels * Normal inferior vena cava size and collapsability with sniff indicates a normal right atrial pressure of 3 mmHg CHEST ONE VIEW PORTABLE HISTORY: Generalized Weakness COMPARISON: Chest 10/27/2014. FINDINGS: No pneumothorax. The heart is mildly enlarged. There are poststernotomy changes and a left-sided dual-chamber pacemaker. Trace bilateral pleural effusions. Diffuse interstitial and vascular thickening with patchy densities within the right lung. This has developed in the interval. Partially visualized cervical spinal fusion hardware. IMPRESSION: Diffuse interstitial and vascular thickening with patchy densities within the right lung and trace bilateral pleural effusions. This most likely represents moderate pulmonary edema. A pneumonia could also this similar appearance but is considered less likely. Recommend follow-up to resolution. Electronically signed by: Augustine Karimi M.D. 08/10/2016 2:45 PM Dictated Date/Time: 08/10/2016 2:42 PM The status of this report is Signed. CHEST 2 VIEWS ROUTINE CLINICAL HISTORY: cough, sob, f/u pulmonary edema pattern dyspnea COMPARISON STUDY: 08/10/2016 FINDINGS: Improving radiographic components of congestive failure versus pulmonary edema. Cardiac size slightly diminished. Pulmonary vasculature improved in prominence. IMPRESSION: Mildly improved components of chronic pulmonary edema versus congestive failure Electronically signed by: Ramana Michelle M.D. 08/11/2016 9:21 AM Dictated Date/Time: 08/11/2016 9:20 AM The status of this report is Signed. 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 Prednisone (Prednisone) 20 Mg Tab 40 MG PO DAILY for 7 Days, #14 TAB Take 2 tablets daily for the next 7 days. Continued Medications: Acetaminophen (Tylenol) 500 Mg Tab 100 MG PO BID, TAB Albuterol Sulfate (Proair Respiclick) 108 Mcg/Act Aer 2 PUFFS INH DAILY Aspirin (Aspirin Ec) 81 Mg Tab 81 MG PO DAILY Atorvastatin (Atorvastatin Calcium) 10 Mg Tab 10 MG PO DAILY Calcium Carbonate-Vitamin D (Oscal 500/200 D-3) 1 Tab Tab 1 TAB PO BID Cholecalciferol (Vitamin D) 1,000 Unit Tab 4000 UNITS PO DAILY Docusate Sodium (Stool Softener) 100 Mg Cap 200 MG PO BID Ezetimibe (Zetia) 10 Mg Tab 10 MG PO DAILY Finasteride (Proscar) 5 Mg Tab 5 MG PO DAILY Multiple Vitamins W/ Minerals (Centrum Silver Adult 50+) 1 Tab Tab 1 TAB PO DAILY Nitroglycerin (Nitrolingual 60 [place]) 1 [place] 1 SPRAY BU UD PRN for Chest Pain Polyethylene (Miralax) 17 Gm Pow 17 GM PO DAILY PRN for Constipation take if stool softner doesn't work Rivaroxaban (Xarelto) 20 Mg Tab 20 MG PO DAILY, TAB Saline (Saline Nasal [place]) 0.65 % Spr 1 SPRAY NA HS Tamsulosin HCl (Tamsulosin HCl) 0.4 Mg Cap 0.4 MG PO DAILY Discharge Exam The patient was seen and examined this morning. Pt reports feeling well, his breathing has significantly improved, and does not feel as fatigued with ambulations compared to before. He is still having cough, nonproductive most of the time.. Will give him a trial of tessalon pearls. He is using inhalers as directed and feel this may be helping as well. Review of Systems: Constitutional: No chills, No fatigue, No fever, No sweats, No weakness Eyes: No problem reported ENT: No problem reported Respiratory: + cough, No dyspnea at rest, No dyspnea on exertion, No hemoptysis, No shortness of breath, No wheezing Cardiovascular: No chest pain, No orthopnea, No palpitations Abdomen: No constipation, No diarrhea, No nausea, No pain, No vomiting Musculoskeletal: No calf pain, No swelling Genitourinary - Male: No dysuria, No hematuria Neurologic: No memory loss, No numbness/tingling Psychiatric: No anxiety, No depression symptoms Physical Exam: General Appearance: WD/WN, no apparent distress Eyes: PERRL, EOMI ENT: hearing grossly normal, pharynx normal Neck: supple, no JVD Respiratory/Chest: normal breath sounds, no respiratory distress, no accessory muscle use, + crackles (left base, improved) Cardiovascular: regular rate, rhythm, normal peripheral pulses Abdomen / GI: non tender, soft, no organomegaly Extremities: no calf tenderness, + pedal edema (1+ pitting in BLE) Neurologic/Psychiatric: alert, normal mood/affect, oriented x 3 Skin: normal color, warm/dry (Mary Chacon PA-C) Hospital Course H&P per Dr. Jose MD. HISTORY OF PRESENT ILLNESS: The patient is a very pleasant 86-year-old male accompanied by his significant other who notes that over about the last 2 weeks, he has just generally been feeling worse. He has got a dry cough. His breathing does not feel right, although he is hard pressed to truly call it shortness of breath. He denies orthopnea but does note that he is always wearing his BiPAP whenever he is lying down. He notes a little bit of edema in his legs that is new but no weight gain and in fact if anything, he is worried about losing weight. He has had a poor appetite. He has had no fevers, chills, or sweats save 1 chill a couple of weeks ago, whenever he was out on a very cold day for an appointment but no other chills or sweats. He does note he has been running a low-grade temperature of about 100 and otherwise has just generally been feeling rundown. PHYSICAL EXAMINATION: VITAL SIGNS: Temp 36.4, pulse 93, respiratory rate 20, blood pressure 155/63, 97% on room air. GENERAL: He is awake, alert, oriented x3, fatigued, but otherwise in no acute distress. HEENT: Normocephalic, atraumatic. Mucous membranes are moist. CARDIOVASCULAR: Irregularly irregular, somewhat distant but no rubs, murmurs, or gallops. LUNGS: Show scattered rales throughout. No real pattern to it. He has got a reasonable air entry, maybe slightly diminished bibasilar. No accessory muscle use. No respiratory distress and he does have a dry cough during the interview. ABDOMEN: Soft, nondistended, nontender, no masses or organomegaly. EXTREMITIES: Without cyanosis or clubbing. He has trace edema with slightly tight skin, suggesting a degree of acuity. SKIN: He has no skin ulcerations. NEUROLOGIC: Shows cranial nerves II-XII to be grossly intact. Gross motor and sensory are intact. MUSCULOSKELETAL: Yields no gross lesions. MENTAL STATE: Shows good recent and remote recall. Normal mood and affect. Good judgment and insight. Hospital Course: 86 yo M with hx of CKD, stage III with a baseline creatinine of 1.3, atrial fibrillation, coronary artery disease status post CABG, hyperlipidemia, BPH, osteoporosis, lumbar spinal stenosis, obstructive sleep apnea, on BiPAP, glaucoma, actinic keratoses, basal cell carcinoma of the skin, chronic back pain, peripheral vascular disease, polyneuropathy, hemorrhoids and constipation with prior fecal impactions. Cough, weakness and malaise with CXR consistent with pulmonary edema Acute exacerbation of CHF, diastolic. - On admission had elevated BNP of 8000, previous cardiac history suggestive of acute diastolic CHF exacerbation. - Continued diuresis with lasix with urine outs= ~4.5L total. Started on lasix PO on prn basis as outpatient- pt was given specific CHF instructions with discharge. - BNP on admission was 8053 ECHO Conclusions -- * Left ventricular systolic function is low normal. * The left atrium is mildly dilated. * Aortic valve sclerosis moderate, without significant aortic valvular stenosis. * There is moderate mitral regurgitation. * Right ventricular systolic pressure is elevated at 30-40mmHg. * EF of 50-55% * Compared to a study from 03/2014, there appears to be a slight reduction in LV function - Pacemaker interrogation completed and is normal - Will have f/u with Dr. Cho within the next 4 weeks. - Cont 1500-mg sodium diet with diuresis Allergic interstitial pneumonitis - possible is from celebrex as this was stopped ~3 weeks ago at this point. - Will consult pulm to have them see and follow in the outpt clinic. - Will continue on prednisone 40 mg x 7 more days, completing a 9 day total course of steroids. Pulm says no need to taper. - Recheck CXR in 4 weeks. - Pt uses albuterol inhaler 2 puffs before bed in the evening and cpap QHS. - Continue symbicort started 08/11 - ESR was elevated = 59 so possibly reactive CKD Stage III, baseline Cr. ~ 1.3 - Follow daily bmp with diuretics, Cr. remained stable - Will need repeat BMP within 1 week to monitor creatinine with start of lasix. Results should be sent to PCP. Coronary artery disease - Continue his home meds. - Cont atorvastatin 10 mg daily, zetia 10 mg daily Atrial fibrillation - His rate is controlled - anticoagulated on Xarelto Weight loss from poor p.o. intake. Moderate protein-calorie malnutrition - Nutrition consulted - Cont boost supplementation 2 cans daily is goal Mildly elevated AST and direct bilirubin. Follow up as an outpatient. Macrocytic anemia - Overall this appears stable to his previous hemoglobins with 1 outlier a year or two ago. His MCV is elevated, but he had a B12 checked that was greater than 1000, likely is chronic. TSH and folic acid are also normal. CBC w/ diff will need to be followed as an outpatient by PCP. Constipation: - MOM, mirilax daily, and will add dulcolax 5 mg oral tabs daily for now. - Encouraged mobility and high fiber intake. Pt has been drinking adequate amounts of fluid without restriction although has CHF exacerbation as above. DVT ppx: Xarelto, cont SCDs CODE STATUS: Full CODE [place] . Discharge today. Total Time Spent: Greater than 30 minutes This includes examination of the patient, discharge planning, medication reconciliation, and communication with other providers. (Mary Chacon PA-C) Attending Discharge Note & Attestation: Pt seen/examined, chart reviewed, and care plan d/w RANDA Chacon on day of discharge. I agree with the mcgarry components of her discharge summary. Briefly - 86yo male who presented with several weeks of worsening pulmonary symptoms including orthopnea, PND, JIMÉNEZ, and cough. CXR showed diffuse interstitial infiltrates. Examination was concerning for acute CHF. He was aggressively diuresed during his stay and symptomatically improved with such. However, even after his diuresis, his chest x-ray still showed diffuse interstitial markings, and he continued with cough. Sed rate was also elevated. It was felt that he had hypersensitivity pneumonitis superimposed on the acute CHF. He apparently had been taking celebrex for several weeks and many of his pulmonary symptoms started shortly after initiating that medication. He was seen in consult by Dr. Vitaliy Cordoba, Pulmonary, who felt that he likely had hypersensitivity pneumonitis and recommended a 7-10 day course of prednisone for such. Discharge exam: gen - NAD neck - no JVD heart - RRR, s1, s2 lungs - mild fine rales bases, otherwise CTA b/l; no wheeze abd - soft, NT, ND ext - 1+ edema b/l, pulses 2+ b/l, varicose veins He will use lasix on an as needed basis (weight-based lasix use) for his chronic diastolic CHF. He will complete a prednisone course as well. Zak Hinds MD (Zak Hinds MD) Discharge Instructions Please refer to the electronic Patient Visit Report (Discharge Instructions) for additional information. (Mary Chacon PA-C) Follow-Up Follow up with your Primary Care Provider within 1 week. Follow up with Dr. Cordoba with pulmonology within 2 weeks. - Have repeat CXR within 4 weeks. Follow up with Dr. Cho, Cardiology within 2 weeks. (Mary Chacon PA-C) Additional Copies To Colby Chris M.D.; Colby Cho M.D.; Vitaliy Cordoba D.O. Pulmonary
[2016-08-13 15:48] VITALS: BP_SYST 149; BP_SYST 152; BP_DIAS 64; BP_DIAS 74; PULSE 67; PULSE 77; TEMP 36.4; TEMP 36.7; O2SAT 97; O2SAT 98
--- NOTE | 2016-08-13 17:30 | ECHOCARDIOGRAM REPORT ---
*NOTICE TO RECEIVING LIBERTARIAN AGENCY This information is strictly Confidential and protected under [place] law. [place] law prohibits you from making any further disclosure of this information unless further disclosure is expressly permitted by the written consent of the person to whom it pertains or is authorized by law. A general authorization for the release of medical or other information is not sufficient for this purpose. Hospital accepts no responsibility if the information is made available to any other person, INCLUDING THE PATIENT. Interpretation Summary * Name: LAURA CUNNINGHAM Study Date: 08/13/2016 03:31 PM BP: 148/78 mmHg * Patient Location: .MS2W\S\W250\S\2 HR: 63 * : 1930 (M/d/yyyy) Gender: Male Height: 73 in * Age: 86 yrs Ethnicity: CA Weight: 166 lb * Ordering Physician: Zak Hinds * Referring Physician: Clyde Garcia D.O. * Performed By: Aretha Tovar RCS * * Reason For Study: CHF * BSA: 2.0 m2 * -- Conclusions -- * Left ventricular systolic function is low normal. * The left atrium is mildly dilated. * Aortic valve sclerosis moderate, without significant aortic valvular stenosis. * There is moderate mitral regurgitation. * Right ventricular systolic pressure is elevated at 30-40mmHg. * Compared to a study from 03/2014, there appears to be a slight reduction in LV function Procedure Details * A complete two-dimensional transthoracic echocardiogram was performed (2D, M-mode, Doppler and color flow Doppler). Left Ventricle * The left ventricle is grossly normal size. * There is borderline concentric left ventricular hypertrophy. * Left ventricular systolic function is low normal. * Ejection Fraction = 50-55%. * Mild global hypokinesis with obvious septal dyskinesis Right Ventricle * The right ventricle is grossly normal size. * There is a pacemaker lead in the right ventricle. Atria * The left atrium is mildly dilated. * Right atrial size is normal. Mitral Valve * The mitral valve is grossly normal. * There is moderate mitral regurgitation. Tricuspid Valve * The tricuspid valve is not well visualized, but is grossly normal. * There is mild tricuspid regurgitation. * Right ventricular systolic pressure is elevated at 30-40mmHg. Aortic Valve * Aortic valve sclerosis moderate, without significant aortic valvular stenosis. * No hemodynamically significant valvular aortic stenosis. * There is no significant aortic regurgitation. Great Vessels * The aortic root is normal size. Pericardium/Pleural * There is no pericardial effusion. Great Vessels * Normal inferior vena cava size and collapsability with sniff indicates a normal right atrial pressure of 3 mmHg MMode 2D Measurements and Calculations IVSd 1.6 cm IVSs 1.6 cm LVIDd 5.0 cm LVIDs 4.0 cm LVPWd 1.4 cm LVPWs 1.6 cm IVS/LVPW 1.2 FS 19.3 % EDV(Teich) 116.1 ml ESV(Teich) 70.2 ml EF(Teich) 39.6 % EDV(cubed) 122.1 ml ESV(cubed) 64.2 ml EF(cubed) 47.4 % % IVS thick 4.8 % % LVPW thick 19.7 % LV mass(C)d 305.1 grams LV mass(C)dI 153.5 grams/m\S\2 LV mass(C)s 265.1 grams LV mass(C)sI 133.4 grams/m\S\2 SV(Teich) 45.9 ml SI(Teich) 23.1 ml/m\S\2 SV(cubed) 57.9 ml SI(cubed) 29.1 ml/m\S\2 Ao root diam 3.6 cm Ao root area 10.1 cm\S\2 LA dimension 4.2 cm LA/Ao 1.2 LVOT diam 2.0 cm LVOT area 3.1 cm\S\2 LVAd ap4 37.1 cm\S\2 LVLd ap4 7.9 cm EDV(MOD-sp4) 141.7 ml EDV(sp4-el) 148.7 ml LVAs ap4 29.3 cm\S\2 LVLs ap4 7.7 cm ESV(MOD-sp4) 94.8 ml ESV(sp4-el) 94.3 ml EF(MOD-sp4) 33.1 % EF(sp4-el) 36.6 % LVAd ap2 40.3 cm\S\2 LVLd ap2 8.7 cm EDV(MOD-sp2) 152.5 ml EDV(sp2-el) 159.3 ml LVAs ap2 33.2 cm\S\2 LVLs ap2 8.3 cm ESV(MOD-sp2) 113.3 ml ESV(sp2-el) 112.7 ml EF(MOD-sp2) 25.7 % EF(sp2-el) 29.3 % LVLd %diff 9.2 % EDV(MOD-bp) 154.4 ml LVLs %diff 6.7 % ESV(MOD-bp) 106.0 ml EF(MOD-bp) 31.3 % SV(MOD-sp4) 46.9 ml SI(MOD-sp4) 23.6 ml/m\S\2 SV(MOD-sp2) 39.2 ml SI(MOD-sp2) 19.7 ml/m\S\2 SV(MOD-bp) 48.4 ml SI(MOD-bp) 24.3 ml/m\S\2 SV(sp4-el) 54.4 ml SI(sp4-el) 27.4 ml/m\S\2 SV(sp2-el) 46.7 ml SI(sp2-el) 23.5 ml/m\S\2 Doppler Measurements and Calculations MV E max lupillo 92.7 cm/sec MV P1/2t max lupillo 111.8 cm/sec MV P1/2t 67.9 msec MVA(P1/2t) 3.2 cm\S\2 MV dec slope 482.5 cm/sec\S\2 MV dec time 0.27 sec Ao V2 max 167.8 cm/sec Ao max PG 11.3 mmHg Ao V2 mean 120.5 cm/sec Ao mean PG 6.3 mmHg Ao mean PG (full) 5.5 mmHg Ao V2 VTI 37.4 cm ADÁN(I,A) 1.1 cm\S\2 ADÁN(I,D) 1.1 cm\S\2 LV V1 mean PG 0.77 mmHg LV V1 mean 40.7 cm/sec LV V1 VTI 13.6 cm MR max lupillo 449.9 cm/sec MR max PG 81.0 mmHg SV(Ao) 377.7 ml SI(Ao) 190.0 ml/m\S\2 SV(LVOT) 41.7 ml SI(LVOT) 21.0 ml/m\S\2 PA V2 max 58.1 cm/sec PA max PG 1.4 mmHg TR max lupillo 280.4 cm/sec
[2016-08-13] MEDS: RIVAROXABAN 10 MG TAB PO SCH (17:35)
[2016-08-13] MEDS: SODIUM CHLORIDE 0.65% NA SOLN 45 ML (OCEAN) SCH (21:45)
[2016-08-13 23:30] VITALS: BP 164/72; PULSE 70; TEMP 36.6; O2SAT 94
[2016-08-14] VITALS: BP 152/67; O2SAT 97
[2016-08-14 06:56] LABS: BASO % 0.2 %; BASO ABS # 0.01 K/uL (0-0.2); EOS % 3.3 %; HEMATOCRIT 29.9 % (42-52); LYMPH % 21.7 %; LYMPH ABS # 1.13 K/uL (1.2-3.4); MEAN CELL VOLUME 111.2 fL (80-100); MEAN CORPUSCULAR HEMOGLOBIN 36.4 pg (25-34); MEAN CORPUSCULAR HGB CONC 32.8 g/dl (32-36); MEAN PLATELET VOLUME 10.7 fL (7.4-10.4); MONO % 7.3 %; NEUT % 66.5 %; PLATELET COUNT 140 K/uL (130-400); RED BLOOD COUNT 2.69 M/uL (4.7-6.1)
[2016-08-14 06:58] VITALS: BP 128/58; PULSE 68; TEMP 37.2; O2SAT 93
[2016-08-14 07:26] LABS: CALCIUM 8.6 mg/dl (8.5-10.1); CREATININE 1.2 mg/dl (0.60-1.40); POTASSIUM 4.2 mmol/L (3.5-5.1)
[2016-08-14 07:44] LABS: COMPLETE YES; LARGE PLATELETS 1+
[2016-08-14] MEDS: ALBUTEROL HFA 8 GM INHALER INH SCH (08:42)
[2016-08-14] MEDS: DOCUSATE SODIUM 100 MG CAP PO SCH ×2 (08:43→21:00)
[2016-08-14] MEDS: BUDESONIDE/FORMOTEROL FUMARATE 160/4.5 60 PUFFS/INHALER INH SCH ×2 (08:43→21:01)
[2016-08-14] MEDS: CEROVITE ADV FORMULA TAB PO SCH (08:44)
[2016-08-14] MEDS: EZETIMIBE 10MG TAB PO SCH (08:44)
[2016-08-14] MEDS: ASPIRIN 81 MG ECTAB PO SCH (08:44)
[2016-08-14] MEDS: TAMSULOSIN HCL 0.4 MG CAP PO SCH (08:44)
[2016-08-14] MEDS: POTASSIUM CHLORIDE 20 MEQ TABCR PO SCH (08:44)
[2016-08-14] MEDS: ATORVASTATIN 10 MG TAB PO SCH (08:44)
[2016-08-14] MEDS: CHOLECALCIFEROL 1000 INTER.UNIT TAB PO SCH (08:44)
[2016-08-14] MEDS: CALCIUM CARBONATE 1250MG TAB PO SCH ×2 (08:45→21:22)
[2016-08-14] MEDS: FINASTERIDE 5 MG TAB PO SCH (08:45)
[2016-08-14] MEDS: BOOST PLUS VANILLA PO SCH ×4 (10:00→21:00)
[2016-08-14 13:04] VITALS: BP 128/58; PULSE 68; TEMP 37.2; O2SAT 93
--- NOTE | 2016-08-14 15:07 | DIAGNOSTIC IMAGING REPORT ---
CHEST 2 VIEWS ROUTINE CLINICAL HISTORY: Congestive heart failure. COMPARISON STUDY: Chest radiograph August 11, 2016. FINDINGS: Incidental note is made of an anterior cervical spine fusion, dual lead left subclavian pacemaker and median sternotomy wires. There is no pneumothorax. Mild lung hyperexpansion is noted. No pleural effusion is identified. Diffuse reticulonodular interstitial thickening persists. IMPRESSION: No significant change in interstitial thickening. Interlobular septal thickening indicates pulmonary edema. Nodular opacities within lungs may also reflect pulmonary edema although a superimposed infectious process would be difficult to exclude. Radiographic follow up to ensure resolution is recommended. Electronically signed by: Jamie Spencer M.D. 08/14/2016 3:06 PM Dictated Date/Time: 08/14/2016 3:03 PM
[2016-08-14] MEDS ORDERED: FUROSEMIDE 20 MG TAB PO ONE (16:05)
[2016-08-14] MEDS: RIVAROXABAN 10 MG TAB PO SCH (16:08)
--- NOTE | 2016-08-14 19:43 | Progress Note ---
Subjective Date of Service: Aug 14, 2016. Subjective Pt evaluation today including: conversation w/ patient, conversation w/ family ( at bedside), physical exam, chart review, lab review, review of studies ( cxr), conversation w/ biometrics consultant (pulmonary, cardiology), review of inpatient medication list Pain: denies any source PO Intake: improving Voiding: no voiding problems no events overnight overall feels much better denies orthopnea or dyspnea but still having significant cough he states all symptoms began within days of starting celebrex; he took this about 3 weeks ago never had lung disease in his lifetime had some low-grade temps a few weeks ago - about 100; but none since Problem List Medical Problems: (1) Pulmonary edema Status: Acute Review of Systems Constitutional: No chills, No fever Respiratory: + cough, No dyspnea on exertion, No shortness of breath, No sputum , No wheezing Cardiac: No PND, No chest pain, No orthopnea Abdomen: No pain Objective Vital Signs Date Time Temp Pulse Resp B/P Pulse Ox O2 Delivery O2 Flow Rate FiO2 08/14/16 16:00 Room Air 08/14/16 13:04 37.2 68 18 93 Room Air 08/14/16 07:20 Room Air 08/14/16 06:58 37.2 68 18 128/58 93 Room Air 08/14/16 00:00 152/67 08/14/16 00:00 97 Room Air 08/13/16 23:30 36.6 70 18 164/72 94 08/13/16 20:00 Room Air Physical Exam General Appearance: no apparent distress ENT: pharynx normal Neck: no JVD Respiratory/Chest: no respiratory distress, no accessory muscle use, + rales ( scant dry in the left base only, good air movement otherwise) Cardiovascular: regular rate, rhythm, no gallop, + systolic murmur (2/6 LSB) Abdomen: normal bowel sounds, non tender, soft, no organomegaly Extremities: + pedal edema (1+ b/l with varicose veins) Neurologic/Psychiatric: alert, oriented x 3 Laboratory Results Last 24 Hours Test 08/14/16 06:40 White Blood Count 5.20 K/uL Red Blood Count 2.69 M/uL Hemoglobin 9.8 g/dL Hematocrit 29.9 % Mean Corpuscular Volume 111.2 fL Mean Corpuscular Hemoglobin 36.4 pg Mean Corpuscular Hemoglobin Concent 32.8 g/dl Platelet Count 140 K/uL Mean Platelet Volume 10.7 fL Neutrophils (%) (Auto) 66.5 % Lymphocytes (%) (Auto) 21.7 % Monocytes (%) (Auto) 7.3 % Eosinophils (%) (Auto) 3.3 % Basophils (%) (Auto) 0.2 % Neutrophils # (Auto) 3.46 K/uL Lymphocytes # (Auto) 1.13 K/uL Monocytes # (Auto) 0.38 K/uL Eosinophils # (Auto) 0.17 K/uL Basophils # (Auto) 0.01 K/uL RDW Standard Deviation 65.5 fL RDW Coefficient of Variation 16.4 % Immature Granulocyte % (Auto) 1.0 % Immature Granulocyte # (Auto) 0.05 K/uL Nucleated RBC Absolute Count (auto) 0.05 K/uL Nucleated Red Blood Cells % 0.9 % Large Platelets 1+ Sodium Level 140 mmol/L Potassium Level 4.2 mmol/L Chloride Level 103 mmol/L Carbon Dioxide Level 27 mmol/L Anion Gap 10.0 mmol/L Blood Urea Nitrogen 22 mg/dl Creatinine 1.20 mg/dl Est Creatinine Clear Calc Drug Dose 44.2 ml/min Estimated GFR () 62.6 Estimated GFR (Non- 54.0 BUN/Creatinine Ratio 18.0 Random Glucose 109 mg/dl Calcium Level 8.6 mg/dl Assessment and Plan 86yo male with: 1. acute/chronic systolic/diastolic CHF - acute component resolved, but still with pulmonary symptoms - see below. Change to po lasix for 1-2 more days then PRN thereafter. 2. abnormal cxr - despite nice diuresis over the last 4 days he continues with significant interstitial cxr findings. His symptoms coincided with starting celebrex several weeks ago. His sed rate is elevated. This could be hypersensitivity pneumonitis in the setting of #1. Spoke with Dr. Cordoba, pulmonary, by phone who recommended trial of prednisone. Started such today. Will keep overnight and consider formal consultation with pulmonary tomorrow. If he failed to improve w/ steroids would need CT chest, bronch, etc. Discussed this with pt & his today at bedside. 3. CKD, stage III with a baseline creatinine of 1.3 - stable. 4. h/o atrial fibrillation s/p pacemaker placement - pacer interrogated; nearly 100% paced; 4 years battery life; device operating well. No dysrhythmias seen. Cont xarelto. 5. h/o coronary artery disease status post CABG - stable. 6. obstructive sleep apnea - continue BiPAP. 7. abnormal CBC with elevated MCV - could be early MDS; consider outpatient heme/onc referral or just following over time. past b12/folate levels were normal. 8. DVT proph - xarelto. d/c tomorrow ? Discharge planning: home
[2016-08-14] MEDS: SODIUM CHLORIDE 0.65% NA SOLN 45 ML (OCEAN) SCH (21:01)
[2016-08-14 23:55] VITALS: BP 134/68; PULSE 61; TEMP 36.7; O2SAT 92
[2016-08-15 06:47] LABS: BUN/CREATININE RATIO 21.6 (10-20); CREATININE 1.1 mg/dl (0.60-1.40); POTASSIUM 5.1 mmol/L (3.5-5.1)
[2016-08-15 07:27] VITALS: BP 148/67; PULSE 89; TEMP 36.7; O2SAT 90
--- NOTE | 2016-08-15 08:13 | Hospitalist Progress Note ---
Hospitalist Progress Note Date of Service Aug 15, 2016. (Mary Chacon PA-C) Objective Vital Signs Date Time Temp Pulse Resp B/P Pulse Ox O2 Delivery O2 Flow Rate FiO2 08/15/16 07:27 36.7 89 20 148/67 90 Room Air 08/15/16 00:30 Room Air BiPAP 08/14/16 23:55 36.7 61 18 134/68 92 Room Air 08/14/16 16:00 Room Air 08/14/16 13:04 37.2 68 18 93 Room Air (Mary Chacon PA-C) Laboratory Results Last 24 Hours Test 08/15/16 05:10 08/15/16 07:38 Sodium Level 139 mmol/L Potassium Level 5.1 mmol/L Chloride Level 102 mmol/L Carbon Dioxide Level 29 mmol/L Anion Gap 8.0 mmol/L Blood Urea Nitrogen 24 mg/dl Creatinine 1.10 mg/dl Est Creatinine Clear Calc Drug Dose 49.5 ml/min Estimated GFR () 69.6 Estimated GFR (Non- 60.0 BUN/Creatinine Ratio 21.6 Random Glucose 155 mg/dl Calcium Level 9.0 mg/dl Bedside Glucose 153 mg/dl (Mary Chacon PA-C) Assessment and Plan 86 yo M with hx of CKD, stage III with a baseline creatinine of 1.3, atrial fibrillation, coronary artery disease status post CABG, hyperlipidemia, BPH, osteoporosis, lumbar spinal stenosis, obstructive sleep apnea, on BiPAP, glaucoma, actinic keratoses, basal cell carcinoma of the skin, chronic back pain, peripheral vascular disease, polyneuropathy, hemorrhoids and constipation with prior fecal impactions. Cough, weakness and malaise with CXR consistent with pulmonary edema Acute exacerbation of CHF, diastolic. - On admission had elevated BNP of 8000, previous cardiac history suggestive of acute diastolic CHF exacerbation. - Continued diuresis with lasix with urine outs= ~4.5L total. Started on lasix PO and potassium supplementation upon discharge. - BNP on admission was 8053 -- Conclusions -- * Left ventricular systolic function is low normal. * The left atrium is mildly dilated. * Aortic valve sclerosis moderate, without significant aortic valvular stenosis. * There is moderate mitral regurgitation. * Right ventricular systolic pressure is elevated at 30-40mmHg. * EF of 50-55% * Compared to a study from 03/2014, there appears to be a slight reduction in LV function - Pacemaker interrogation completed and is normal - Will have f/u with Dr. Cho within the next 4 weeks. - Cont 1500-mg sodium diet with diuresis Allergic interstitial pneumonitis - possible is from celebrex as this was stopped ~3 weeks ago at this point. - Will consult pulm to have them see and follow in the outpt clinic. - Will continue on prednisone 40 mg x 7 more days, completing a 9 day total course of steroids. Pulm says no need to taper. - Recheck CXR in 4 weeks. - Pt uses albuterol inhaler 2 puffs before bed in the evening and cpap QHS. - Continue symbicort started 08/11 - ESR was elevated = 59 so possibly reactive CKD Stage III, baseline Cr. ~ 1.3 - Follow daily bmp with diuretics, Cr. remained stable - Will need repeat BMP within 1 week to monitor creatinine with start of lasix. Results should be sent to PCP. Coronary artery disease - Continue his home meds. - Cont atorvastatin 10 mg daily, zetia 10 mg daily Atrial fibrillation - His rate is controlled - anticoagulated on Xarelto Weight loss from poor p.o. intake. Moderate protein-calorie malnutrition - Nutrition consulted - Cont boost supplementation 2 cans daily is goal Mildly elevated AST and direct bilirubin. Follow up as an outpatient. Macrocytic anemia - Overall this appears stable to his previous hemoglobins with 1 outlier a year or two ago. His MCV is elevated, but he had a B12 checked that was greater than 1000, likely is chronic. TSH and folic acid are also normal. CBC w/ diff will need to be followed as an outpatient by PCP. Constipation: - MOM, mirilax daily, and will add dulcolax 5 mg oral tabs daily for now. - Encouraged mobility and high fiber intake. Pt has been drinking adequate amounts of fluid without restriction although has CHF exacerbation as above. DVT ppx: Xarelto, cont SCDs CODE STATUS: Full CODE [place] . Discharge today. (Mary Chacon, EMILY) Attending Attestation: Pt seen/examined, chart reviewed, care plan d/w RANDA Chacon. I agree w/ the mcgarry components of her progress note. Pt feels good. Still coughing but not severe. slept well last pm. eating fair. tolerating the prednisone. VSS, afebrile o2 sats normal in RA gen - NAD mouth - MMM, no thrush neck - no JVD heart - RRR, s1, s2 lungs - fine rales bases only, no wheeze abd - soft ext - 1+ edema b/l, varicose veins b/l labs - creatinine stable A/P: 1. acute/chronic diastolic CHF with low-normal EF - acute component resolved. d/c on lasix PRN (weight based / sliding scale) f/u Dr. Cho 1 week 2. suspected hypersensitivity pneumonitis - appreciate Dr. Cordoba's consultation plan for course of prednisone with f/u with Dr. Cordoba 3. pacemaker - interrogation done; no dysrhythmia; plenty of battery life ok for d/c home Leida HINDS MD (Zak Hinds MD)
[2016-08-15] MEDS: BUDESONIDE/FORMOTEROL FUMARATE 160/4.5 60 PUFFS/INHALER INH SCH (08:22)
[2016-08-15] MEDS: ALBUTEROL HFA 8 GM INHALER INH SCH (08:23)
[2016-08-15] MEDS: DOCUSATE SODIUM 100 MG CAP PO SCH (08:23)
[2016-08-15] MEDS: ASPIRIN 81 MG ECTAB PO SCH (08:24)
[2016-08-15] MEDS: CALCIUM CARBONATE 1250MG TAB PO SCH (08:24)
[2016-08-15] MEDS: CEROVITE ADV FORMULA TAB PO SCH (08:25)
[2016-08-15] MEDS: ATORVASTATIN 10 MG TAB PO SCH (08:25)
[2016-08-15] MEDS: CHOLECALCIFEROL 1000 INTER.UNIT TAB PO SCH (08:26)
[2016-08-15] MEDS: TAMSULOSIN HCL 0.4 MG CAP PO SCH (08:26)
[2016-08-15] MEDS: FINASTERIDE 5 MG TAB PO SCH (08:27)
[2016-08-15] MEDS: EZETIMIBE 10MG TAB PO SCH (08:28)
[2016-08-15] MEDS ORDERED: FUROSEMIDE 20 MG TAB PO SCH (09:00)
[2016-08-15] MEDS: BOOST PLUS VANILLA PO SCH ×2 (09:04)
--- NOTE | 2016-08-15 09:30 | PULMONARY CONSULTATION ---
DATE OF CONSULTATION: 08/15/2016 HISTORY OF PRESENT ILLNESS: The patient is a very pleasant 86-year-old male who is admitted to the hospital and Dr. Hinds has asked me to evaluate the patient from a pulmonary standpoint. He has significant back discomfort. He has been placed on Xarelto for atrial fibrillation and has been chronically anticoagulated for years. He is followed by Dr. Cho for coronary artery disease, pacemaker assessment and atrial fibrillation. He walks around generally with a walker, but denies any chest pain, fevers or night sweats. He has not had any orthopnea. He started Celebrex about 3 weeks ago. After starting the Celebrex, after about a week, he noticed some edema in the lower extremities associated with cough and some mild anorexia. The cough then persisted and he developed some shortness of breath and low grade fever and was admitted to the hospital on the . He has had diuresis, but it has not been great diuresis, although he states that with diuresis, he is improved. His weight has gone from 75.6 kilograms to 73.9 kilograms, in which he has lost about 4 pounds. He states that he has had more out than in except yesterday. He states he is 100% better than at the time of admission. He also was started on some prednisone yesterday at 40 mg daily for changes consistent with possible hypersensitivity pneumonitis. He had a chest x-ray done that suggests, he could have hypersensitivity pneumonitis with some interstitial thickening, some septal thickening, and some nodular densities bilaterally. He has not had any significant sputum production, fevers, night sweats, or weight loss. He has no TB exposure. Presently, he states that he is anxious to get home. He did have an echocardiogram that revealed slight reduction of left ventricular ejection fraction with pulmonary artery pressures at 30-40 mmHg with some moderate aortic sclerosis with no significant aortic stenosis with moderate mitral regurgitation with an LVEF of about 50%. He does have a pacemaker implanted. REVIEW OF SYSTEMS: Otherwise, is unremarkable. Travel history and environmental history are unremarkable. No pets at home. No one in his family has been ill. PAST MEDICAL HISTORY: Well outlined in records includes bypass surgery for coronary artery disease, hyperlipidemia, BPH and degenerative joint disease. He carries a history of mixed obstructive and central sleep apnea. He had been on ASV. What I can glean from the records, he is now on BiPAP. He carries a history of polyneuropathy, hemorrhoids and some fecal impactions. He had a CAT scan of his abdomen several years ago that showed no significant pulmonary abnormalities. PAST SURGICAL HISTORY: Positive for a pacer implantation, coronary artery bypass surgery, and lumbar surgery. SOCIAL HISTORY: He lives at the [facility]. 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 He is not a tobacco or alcohol user. 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 ALLERGIES: HE IS ALLERGIC TO NAPROSYN, MERCURY, AND ADHESIVES. THE REACTION TO NAPROSYN WAS SOME MILD SHORTNESS OF BREATH AND MAYBE A RASH, ALTHOUGH HE DOES NOT REMEMBER. FAMILY HISTORY: Father from heart disease. Brother from diabetes mellitus. MEDICATIONS: Noted. He is on Lipitor. He had been on Celebrex that was stopped 4 days prior to admission. Remainder of his medications have been on board chronically. PHYSICAL EXAMINATION: VITAL SIGNS: Stable. His oxygen saturation is 92%-93% on room air. Blood pressure 148/67. He is afebrile and apparently has been afebrile since admission. Oxygen saturation is 97% on room air at the time of admission. Weight 73.9 kilograms. HEENT: Reveals some mild gingivitis with no bleeding noted. No evidence of upper airway bleeding noted. No lesions are noted in the mouth. Dentition otherwise is fairly good. No adenopathy is noted anywhere. Carotid upstroke normal. Thyroid normal. Trachea midline. Expansion of the thorax is good with deep inspiration. HEART: Has had irregular rhythm with 1/6 systolic murmur heard at the apex. The rate is about 60 beats per minute. There appears to be a paced rhythm. LUNGS: Very minimal crackles at the right base posteriorly, otherwise are clear. No other abnormalities noted. I do not detect any diffuse crackles or rales. ABDOMEN: Soft and nontender. EXTREMITIES: He has no cyanosis or clubbing. There is trace peripheral edema in the pretibial area. Chest x-ray is noted as above. LABORATORY DATA: White count 5.2, hemoglobin 9.8, hematocrit 30% with macrocytic hyperchromic indices. Unremarkable differential. Platelet count 140,000. His coagulation profile was unremarkable with an INR of 1.2. PRP looked good with a BUN of 24. Sugars have been in the 105-150 range. BNP was elevated at 8000. It was 9072 on the . Urinalysis was unremarkable. Influenza A and B PCR negative. IMPRESSION: 1. Pneumonitis. This appears to be a diffuse pneumonitis by chest x-ray. Certainly, pneumonitis associated with Celebrex is a possibility. It seems to fit with his history and he has responded nicely to his diuresis and also to the prednisone. 2. Possible pulmonary edema. He carries a history of ischemic cardiomyopathy, although his LVEF on recent echo actually looked fairly good. There is some mild pulmonary hypertension consistent probably with some left ventricular dysfunction. 3. Chronic atrial fibrillation. He appears to be at paced rhythm now. 4. Obstructive sleep apnea. This seems to be mixed obstructive and central apnea. He had been on ASV in the past. RECOMMENDATIONS: 1. Continue on prednisone. I would treat him for just 7-10 days. 40 mg a day for 1 week would be appropriate and can be stopped abruptly. If his symptoms return, then a longer taper prednisone would be indicated. 2. At this point, I will recheck a chest x-ray in about 4 weeks with a set of pulmonary function studies and if the symptoms recur, then a longer taper prednisone may be indicated. 3. A 1500-mg sodium diet with diuresis. It should be continued at home. 4. Follow up with Dr. Cho in about 3-4 weeks as well. Thanks for asking me to evaluate Mr. Orr. I will be glad to see him as an outpatient if he desires.
[2016-08-15] MEDS ORDERED: PRD20 PO (11:24)
[2016-08-15] MEDS ORDERED: SYMIN INH (11:24)
[2016-08-15] MEDS ORDERED: LSX20 PO (11:24)
[2016-08-15] MEDS ORDERED: NUTR-977 PO (11:24)
[2016-08-15] MEDS ORDERED: BENZ100C18 PO (11:24)
== END 2016-08-15 13:30 | disposition home or self-care (01) | DRG 292 ==
LOC: ENRESERVDT → ENRESERVTM → C.EDB 12:47 → C.MS2W 16:22 → OBSVTOIN 08-11 21:40
PROVIDERS: ADMIT Family Medicine; ATTEND Internal Medicine
DX: I50.33 Acute on chronic diastolic (congestive) heart failure (principal); E44.0 Moderate protein-calorie malnutrition; T39.4X5A Adverse effect of antirheumatics, not elsewhere classified, initial encounter; I25.10 Atherosclerotic heart disease of native coronary artery without angina pectoris; I48.2 Chronic atrial fibrillation; N18.3 Chronic kidney disease, stage 3 (moderate); D53.9 Nutritional anemia, unspecified; K59.00 Constipation, unspecified; R79.89 Other specified abnormal findings of blood chemistry; G47.33 Obstructive sleep apnea (adult) (pediatric); I08.0 Rheumatic disorders of both mitral and aortic valves; I73.9 Peripheral vascular disease, unspecified; G62.9 Polyneuropathy, unspecified; E78.5 Hyperlipidemia, unspecified; N40.0 Benign prostatic hyperplasia without lower urinary tract symptoms; M81.0 Age-related osteoporosis without current pathological fracture; M48.06 Spinal stenosis, lumbar region; Z95.1 Presence of aortocoronary bypass graft; Z95.0 Presence of cardiac pacemaker; Z85.828 Personal history of other malignant neoplasm of skin; Z79.01 Long term (current) use of anticoagulants; Z79.1 Long term (current) use of non-steroidal anti-inflammatories (NSAID); Z79.82 Long term (current) use of aspirin; Z79.899 Other long term (current) drug therapy; Z88.6 Allergy status to analgesic agent; Z82.49 Family history of ischemic heart disease and other diseases of the circulatory system; Z83.3 Family history of diabetes mellitus

== ENCOUNTER → 2016-10-14 | Outpatient (CLI) | payer BC ==
[~2016-10-14] MED LIST changes: +ALBU18002 INH; -ALBU1AER9 INH; -LPD600 PO; +LSX20 PO; +NUTR-977 PO; +PRD20 PO; +RIVA1TAB4 PO; +SYMIN INH; -WARF1TAB PO; -WARF4TAB44 PEG
[2016-10-14 11:23] LABS: BLOOD UREA NITROGEN 18 mg/dl (7-18); BUN/CREATININE RATIO 15.9 (10-20); CALCIUM 9.1 mg/dl (8.5-10.1); CARBON DIOXIDE 23 mmol/L (21-32); CHLORIDE 110 mmol/L (98-107); GLUCOSE 110 mg/dl (70-99); POTASSIUM 4.1 mmol/L (3.5-5.1); SODIUM 145 mmol/L (136-145)
[2016-10-14 13:04] LABS: LYME DISEASE AB IGG NEG (NEG)
[2016-10-14 13:07] LABS: LYME DISEASE AB IGM NEG (NEG)
== END | disposition home or self-care (01) ==
LOC: C.LABVPSUW 10:20
PROVIDERS: ATTEND Family Medicine
DX: B35.6 Tinea cruris (principal); I50.9 Heart failure, unspecified; I48.2 Chronic atrial fibrillation; I25.10 Atherosclerotic heart disease of native coronary artery without angina pectoris; D51.9 Vitamin B12 deficiency anemia, unspecified; E61.1 Iron deficiency

== ENCOUNTER → 2016-10-17 | Outpatient (CLI) | payer BC ==
[~2016-10-17] VITALS: Ht 186.7 cm; Wt 72.2 kg
[2016-10-17 16:15] VITALS: BP 113/6; PULSE 108; Ht 186.7 cm; Wt 72.2 kg
== END | disposition home or self-care (01) ==
LOC: C.NEUR 15:32
PROVIDERS: ATTEND Internal Medicine Pulmonary Disease
DX: G47.30 Sleep apnea, unspecified (principal)

== ENCOUNTER → 2017-07-03 | Outpatient (CLI) | payer BC ==
[2017-07-03 09:52] LABS: HEMATOCRIT 35.1 % (42-52); HEMOGLOBIN 11.6 g/dL (14.0-18.0); MEAN CELL VOLUME 116.6 fL (80-100); MEAN CORPUSCULAR HEMOGLOBIN 38.5 pg (25-34); MEAN PLATELET VOLUME 12.2 fL (7.4-10.4); PLATELET COUNT 80 K/uL (130-400); RED CELL DISTRIBUTION WIDTH CV 15.8 % (11.5-14.5); RED CELL DISTRIBUTION WIDTH SD 66.7 fL (36.4-46.3); WHITE BLOOD COUNT 4.38 K/uL (4.8-10.8)
== END | disposition home or self-care (01) ==
LOC: C.LABSPEC 08:31
PROVIDERS: ATTEND Family Medicine
DX: R53.83 Other fatigue (principal); I48.2 Chronic atrial fibrillation; D51.9 Vitamin B12 deficiency anemia, unspecified; E55.9 Vitamin D deficiency, unspecified

== ENCOUNTER 2017-07-16 10:57 | Emergency (ER) | payer BC ==
[~2017-07-16] VITALS: Ht 185.4 cm; Wt 73.9 kg
[2017-07-16 11:07] VITALS: TEMP 36.9; Ht 185.4 cm; Wt 73.9 kg
[2017-07-16] MEDS ORDERED: NITR0.4S74 BU (11:46)
[2017-07-16] MEDS ORDERED: CHOL20009 PO (11:47)
[2017-07-16] MEDS ORDERED: HYDROCODONE/ACETAMOPHEN 5/325MG TAB PO STA (12:21)
--- NOTE | 2017-07-16 12:52 | DIAGNOSTIC IMAGING REPORT ---
R TIBIA/FIBULA 2 VIEWS ROUTINE CLINICAL HISTORY: Right leg pain status post trauma COMPARISON: None. DISCUSSION: The bones are osteopenic. There are moderately extensive vascular calcifications. Multiple surgical clips are visualized. No acute fractures are visualized. IMPRESSION: Osteopenia. No acute fractures are visualized. Electronically signed by: Dakota Graf M.D. 07/16/2017 12:50 PM Dictated Date/Time: 07/16/2017 12:50 PM
--- NOTE | 2017-07-16 12:55 | DIAGNOSTIC IMAGING REPORT ---
RIGHT KNEE 3 VIEWS CLINICAL HISTORY: Fall with right knee pain. FINDINGS: AP, crosstable lateral, and sunrise views of the right knee are obtained. No prior studies are available for comparison at the time of dictation. The skeletal structures are heterogeneously osteopenic. No fracture is seen. There is moderate narrowing at the patellofemoral articulation. Mild narrowing is seen in the medial and lateral compartments. Chondrocalcinosis is noted in the medial and lateral compartments. There is degenerative beaking of the tibial spine and tiny patellar enthesophytes. Growth arrest lines are noted in the proximal tibia. A small joint effusion is noted. Mild soft tissue swelling is suggested around the knee. Advanced atherosclerotic calcification is present in the popliteal artery. Surgical clips are noted in the upper calf. IMPRESSION: 1. Soft tissue swelling and small joint effusion. No right knee fracture is seen. 2. Osteopenia, arthritic change, and chondrocalcinosis as above. Electronically signed by: Apolinar Perez M.D. 07/16/2017 12:53 PM Dictated Date/Time: 07/16/2017 12:51 PM
--- NOTE | 2017-07-16 14:05 | DIAGNOSTIC IMAGING REPORT ---
RIGHT LOWER EXTREMITY VENOUS DOPPLER HISTORY: right leg pain, fall COMPARISON STUDY: None. FINDINGS: There is normal compressibility, flow, and augmentation within the right lower extremity deep venous system. A 2.0 x 1.8 x 1.2 cm popliteal cyst with internal echoes. No color flow identified. IMPRESSION: No DVT within the right lower extremity. Small complex popliteal cyst. Electronically signed by: Augustine Karimi M.D. 07/16/2017 2:03 PM Dictated Date/Time: 07/16/2017 2:03 PM
[2017-07-16 15:20] VITALS: BP 139/53; PULSE 62; O2SAT 97
[2017-07-16] MEDS ORDERED: NORCO 5/325MG HOME PACK PO ONE (15:45)
--- NOTE | 2017-07-16 18:22 | EMERGENCY ROOM VISIT NOTE ---
History Report prepared by Kristine: Gian Engel Under the Supervision of: Dr. Chapito Dejesus M.D. First contact with patient: 11:32 Chief Complaint: LEG PAIN,LEG INJURY Stated Complaint: FALL History of Present Illness The patient is a 87 year old male who presents to the Emergency Room with complaints of worsening right leg pain behind his right knee that began yesterday. He rates his pain a 4/10 in severity. At that time, the patient was sitting on the edge of his bed trying to reach for something when he accidentally slid to the floor. He did not lose consciousness or hit his head. He states that his leg got tangled up and began to hurt. He needed help getting up initially but was able to ambulate. He placed a knee brace to his knee at that time. This morning, his pain is much worse and the right leg is now feeling weak. His pain is exacerbated with movement and is unable to bear weight. Pt denies LOC, headache, visual changes, neck pain, chest pain, breathing difficulties, nausea, vomiting, abdominal pain, back pain, other extremity pain, numbness, weakness, open wounds, active bleeding, or other complaints. He denies any history of DVT. He did not take anything for his pain. Source of History: patient Onset: yesterday Position: leg (right) Symptom Intensity: 4/10 Quality: ache Timing: worsening Modifying Factors (Worsening): movement, other (weight bearing) Associated Symptoms: + weakness (right leg) Review of Systems See HPI for pertinent positives and negatives. A total of ten systems were reviewed and were otherwise negative. 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 (11) OSTEOPOROSIS NOS (12) SPINAL STENOSIS-LUMBAR Family History FHx: pneumonia Heart disease Social History Smoking Status: Never Smoker Alcohol Use: none Drug Use: none Marital Status: Housing Status: lives with family Occupation Status: retired Current/Historical Medications Scheduled Albuterol Sulfate (Proair Respiclick), 2 PUFFS INH DAILY Aspirin (Aspirin Ec), 81 MG PO DAILY Atorvastatin (Lipitor), 10 MG PO DAILY Calcium Carbonate-Vitamin D (Oscal 500/200 D-3), 1 TAB PO BID Cholecalciferol (Vitamin D), 4,000 UNITS PO DAILY Docusate Sodium (Stool Softener), 200 MG PO BID Ezetimibe (Zetia), 10 MG PO DAILY Finasteride (Proscar), 5 MG PO DAILY Multiple Vitamins W/ Minerals (Centrum Silver Adult 50+), 1 TAB PO DAILY Rivaroxaban (Xarelto), 20 MG PO DAILY Tamsulosin HCl (Tamsulosin HCl), 0.4 MG PO DAILY Scheduled PRN Furosemide (Furosemide), 20 MG PO QAM PRN for volume overload Nitroglycerin (Nitrolingual Pumpspray), 1 SPRAY BU UD PRN for CHEST PAIN Polyethylene (Miralax), 17 GM PO DAILY PRN for Constipation Allergies Coded Allergies: Adhesives (Verified Allergy, Mild, RASH, 07/16/17) Mercury (Verified Allergy, Unknown, rash, 07/16/17) patient Naproxen (Verified Allergy, Unknown, unknown, 07/16/17) patient Celecoxib (Unverified Adverse Reaction, Unknown, RESPIRATORY PROBLEMS, 07/16) Physical Exam Vital Signs Date Time Temp Pulse Resp B/P (MAP) Pulse Ox O2 Delivery O2 Flow Rate FiO2 07/16/17 15:20 62 20 139/53 97 Room Air 07/16/17 13:20 60 20 132/58 100 Room Air 07/16/17 11:07 36.9 106 16 115/69 98 Room Air Physical Exam GENERAL: Awake, alert, well-appearing, in no distress HENT: Normocephalic, atraumatic. Oropharynx unremarkable. EYES: Normal conjunctiva. Sclera non-icteric. NECK: Supple. No nuchal rigidity. FROM. No JVD. RESPIRATORY: Clear to auscultation. CARDIAC: Regular rate, normal rhythm. Extremities warm and well perfused. Pulses equal. ABDOMEN: Soft, non-distended. No tenderness to palpation. No rebound or guarding. No masses. RECTAL: Deferred. MUSCULOSKELETAL: Chest examination reveals no tenderness. The back is symmetrical on inspection without obvious abnormality. There is no CVA tenderness to palpation. No joint edema. LOWER EXTREMITIES: Calves are equal size bilaterally and non-tender. No edema. No discoloration. NEURO: Normal sensorium. No sensory or motor deficits noted. SKIN: No rash or jaundice noted. Medical Decision & Procedures ER Provider Diagnostic Interpretation: Radiology results as stated below per my review and radiologist interpretation: Medications Administered Medications (Trade) Dose Ordered Sig/Melissa Route Start Time Stop Time Status Last Admin Dose Admin Acetaminophen/ Hydrocodone Bitart ([place] 5/325 Tab) 1 tab NOW STAT PO 07/16/17 12:21 07/16/17 12:23 DC 07/16/17 13:19 1 TAB Acetaminophen/ Hydrocodone Bitart ([place] 5/325mg Home Pack) 1 homepack UD ONCE PO 07/16/17 15:45 07/16/17 15:46 DC 07/16/17 15:45 1 HOMEPACK ED Course 1132: The patient was evaluated in room C11. A complete history and physical exam was performed. 1221: Ordered Hydrocodone Bitart/ Acetaminophen 1 tab PO Medical Decision Prior records reviewed. Triage Nursing notes reviewed and agree them. Additional history obtained from [his . The patient's history was concerning for traumatic injury. Differential diagnosis: Etiologies such as fracture, dislocation, neurovascular compromise, DVT compartment syndrome, soft tissue injury, as well as others were entertained. Physical examination: Consistent with an isolated right lower leg injury. ER treatment provided: 1 [place] On reassessment the patient felt much better. Diagnostics interpreted by me: Imaging studies: Xrays and ultrasound as above. The patient was ambulated. He did relatively well with this but did not want to continue ambulatory trials. He did not want rehabilitation or further escalation in his care. He is at the [facility] and they were contacted. They can escalate his care level there if necessary. He has a walker at home. He was given a single home pack of [place] in case he has additional pains as he notes poor relief with Tylenol in the past. He was counseled. He will use a minimal dose. I gave my usual and customary discussion regarding this issue. By the evaluation outlined above emergent etiologies such as fracture, dislocation, neurovascular compromise, compartment syndrome, infections, as well as others were deemed relatively unlikely. The patient and were informed about the findings as listed above. All questions were answered and they were pleased with the treatment. Return instructions were outlined and the patient was discharged in stable condition. Prescription management: [place] Referral: The patient was referred to their primary care physician in 2 to 3 days for a recheck of your current condition. Medication Reconcilliation Current Medication List: was personally reviewed by me Blood Pressure Screening Patient's blood pressure: Normal blood pressure Blood pressure disposition: Did not require urgent referral Impression Primary Impression: Leg pain, right Additional Impression: Contusion Scribe Attestation The scribe's documentation has been prepared under my direction and personally reviewed by me in its entirety. I confirm that the note above accurately reflects all work, treatment, procedures, and medical decision making performed by me. Departure Information Dispostion Home / Self-Care Referrals [facility] (PCP) Patient Instructions My [facility] Additional Instructions Hydrocodone/acetaminophen 5/325mg: Take 1 pill every 6 hours as needed for pain. Avoid additional Acetaminophen/Tylenol, alcohol, operating machinery or dangerous equipment, working on ladders or roofs, DRIVING, or situations where being under the influence may be dangerous. It is recommended to use a stool softener such as Colace, 100mg twice daily while taking this medication to avoid constipation. Rest. Warm compresses for 20 minutes at a time four times daily for 2-3 days. Use your walker. Follow-up with your primary care physician in 2 to 3 days for a recheck of your current condition. Return to the ER for increased pain in the leg, swelling, passing out, difficulty breathing, fevers, numbness, tingling, worsening of your condition, or as needed. Problem Qualifiers
== END 2017-07-16 15:30 | disposition home or self-care (01) ==
LOC: EDBD 10:57 → C.EDC 10:58
DX: S80.11XA Contusion of right lower leg, initial encounter (principal); M79.604 Pain in right leg; W06.XXXA Fall from bed, initial encounter; Y92.89 Other specified places as the place of occurrence of the external cause; I48.2 Chronic atrial fibrillation; I25.10 Atherosclerotic heart disease of native coronary artery without angina pectoris; Z95.1 Presence of aortocoronary bypass graft; E11.9 Type 2 diabetes mellitus without complications; Z79.899 Other long term (current) drug therapy; Z95.0 Presence of cardiac pacemaker

== ENCOUNTER → 2017-08-17 | Outpatient (CLI) | payer BC ==
[~2017-08-17] MED LIST changes: -CHOL100010 PO; +CHOL20009 PO; +NITR0.4S74 BU; -NITRSPR6 BU; -NUTR-977 PO; -PRD20 PO; -SALI1SPR3; -SYMIN INH; -TYLOTC500 PO
== END | disposition home or self-care (01) ==
LOC: C.RDSM 17:26
PROVIDERS: ATTEND Physical Medicine & Rehabilitation Sports Medicine
DX: Z96.642 Presence of left artificial hip joint (principal)

== ENCOUNTER → 2017-10-19 | Outpatient (CLI) | payer BC | END | disposition home or self-care (01) | LOC: C.LABVPSUW 09:31 | PROVIDERS: ATTEND Internal Medicine Cardiovascular Disease | DX: E78.5 Hyperlipidemia, unspecified (principal); I25.10 Atherosclerotic heart disease of native coronary artery without angina pectoris ==

== ENCOUNTER → 2018-01-14 | Outpatient (CLI) | payer BC ==
[~2018-01-14] MED LIST changes: +OPTIRAY 320 IV PRN
--- NOTE | 2018-01-14 13:37 | DIAGNOSTIC IMAGING REPORT ---
CHEST CT WITH CONTRAST CT DOSE: 517.91 mGy.cm HISTORY: Initial treatment strategy in a patient with hand cytopenia. Concern for occult malignancy. CT TECHNIQUE: Multiaxial CT images of the chest were performed following the intravenous administration of contrast. A dose lowering technique was utilized adhering to the principles of ALARA. COMPARISON: CT abdomen and pelvis of same day and also 10/22/2014, chest radiograph 08/14/2016, lumbar spine CT 10/12/2014. FINDINGS: Homogeneous appearance of the thyroid. Mildly enlarged precarinal lymph node measures 1.6 x 1.1 cm. Prominent AP window lymph nodes measure up to 7 mm. Right hilar lymph nodes measure up to 9 mm. Enlarged subcarinal lymph node measures 2.3 x 1.6 cm. Left subclavian pacer is noted with leads overlying the right atrium and right ventricle. The leads appear to be intact. Prior median sternotomy. Moderate to extensive multichamber cardiac enlargement without pericardial effusion. Pericardial calcifications are seen adjacent to the lateral wall left ventricle. Extensive coronary arterial calcifications are noted. Postoperative changes suggest prior CABG. Moderate mixed plaque formation about the thoracic aorta without aneurysm identified. The opacified pulmonary arterial tree is unremarkable. No evidence of pulmonary thromboembolic disease. Bilateral pleural calcifications. Moderate sized simple right pleural effusion. No pneumothorax. Mild bilateral bronchial wall thickening. Bilateral subpleural reticular opacities are noted. There is mild intralobular septal thickening about the right lung apex. Left basilar groundglass densities suggest atelectasis. There are no suspicious pulmonary nodules or masses identified. 3 mm solid nodule of the right upper lobe, image 105 series 4 it likely benign. Central airways are patent. Reflux of contrast into the IVC and hepatic veins. 1.9 cm cystic lesion of the right upper abdomen adjacent to the liver appears unchanged from comparison. Hypodense lesions of the liver are redemonstrated suggesting hepatic cysts. Large left renal cyst is partially imaged. No acute process of the imaged upper abdomen. The soft tissues are unremarkable. Bilateral gynecomastia. Demineralized appearance of the bones with degenerative changes of the shoulders and spine. No suspicious lytic or blastic bony lesions. Compression deformity of the L1 vertebral body without significant retropulsion has progressively worsened from comparison CT of the lumbar spine. Anterior fusion hardware of the cervical spine is partially imaged. IMPRESSION: 1. 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 Bilateral reticular opacities, notably within a subpleural distribution may reflect asbestosis interstitial lung disease. Correlate with pulmonary function tests. 2. Moderate sized right pleural effusion. 3. Cardiomegaly with prior median sternotomy. 4. Enlarged precarinal, subcarinal and prominent AP window and right hilar lymph nodes are indeterminate. Differential considerations would include reactive process, metastatic disease or lymphoproliferative disorder. Attention at follow-up recommended. 5. Additional findings as above. Electronically signed by: Reyes Goldberg M.D. 01/14/2018 1:35 PM Dictated Date/Time: 01/14/2018 1:20 PM
--- NOTE | 2018-01-14 13:50 | DIAGNOSTIC IMAGING REPORT ---
ABDOMEN AND PELVIS CT WITH IV AND ORAL CONTRAST HISTORY: Initial treatment strategy in a patient with pancytopenia. Clinical concern for occult malignancy. CT TECHNIQUE: Multiaxial CT images of the abdomen and pelvis were performed following the use of intravenous and oral contrast. A dose lowering technique was utilized adhering to the principles of ALARA. COMPARISON STUDY: CT chest of same day, CT abdomen and pelvis 10/22/2014, lumbar spine CT 10/12/2014. FINDINGS: Moderate pleural effusion with right basilar consolidation suggesting compressive atelectasis. Bilateral subpleural reticular opacities are noted. No pneumatosis or pneumoperitoneum. Imaged inferior cardiac chambers are enlarged with pacer leads overlying the right heart. Coronary arterial calcifications are also noted. There are several hypodense lesions about the liver which are unchanged including a cluster of cysts about the left hepatic lobe, composite measuring 3.0 cm. These appear unchanged from comparison. Cystic lesion anterior to the central liver measuring 1.8 cm on image 101 series 302 is indeterminate and appears unchanged from prior study suggesting benign etiology. No intrahepatic biliary ductal dilation. There is mild marginal nodularity of the liver. Cholelithiasis without CT evidence of acute cholecystitis. Spleen and adrenal glands are unremarkable. Moderate generalized pancreatic atrophy. Mild atrophy of the bilateral kidneys. Cyst of the interpolar left kidney measures 4.3 cm. 1.7 cm cyst of the inferior pole right kidney. No ureteral calculi or obstructive uropathy. Pelvic structures are suboptimally visualized secondary to streak artifact from left hip arthroplasty. The prostate appears enlarged. Extensive mixed plaque formation about the abdominal aorta without aneurysm. IVC appears unremarkable. Patent portal vein. There are no pathologically enlarged lymph nodes identified. There is no bowel obstruction. Circumferential wall thickening of the rectum with mild perirectal stranding. Moderate formed stool throughout the colon suggests constipation. Terminal ileum and visualized appendix appear unremarkable. No ascites or mesenteric inflammatory changes. Soft tissues are unremarkable. Demineralized appearance of the bones. There are no suspicious lytic or blastic bony lesions to suggest metastasis. Convex left curvature of the lumbar spine. Mild right hip posterior arthritis. Left hip arthroplasty with satisfactory alignment. Prior laminectomy with posterior interbody amrit and screw fusion at L4-S1. There is no evidence of hardware fracture or loosening. 60% anterior endplate compression deformity of the L1 vertebral body with 3 mm retropulsion of the superior aspect of the posterior endplate. IMPRESSION: 1. Circumferential wall thickening of the rectum with mild perirectal stranding, suboptimally visualized secondary to streak artifact from left hip arthroplasty. Differential considerations would include proctitis or mucosal lesion. Correlation with clinical exam recommended. 2. No bowel obstruction. 3. Mild marginal nodularity of the liver suggests cirrhosis. 4. Cholelithiasis without CT evidence of acute cholecystitis. 5. Moderate size right pleural effusion with right lung base consolidation suggesting compressive atelectasis. 6. Age-indeterminate 60% anterior endplate compression deformity of the L1 vertebral body with 3 mm retropulsion has progressed from comparison lumbar spine CT 10/12/2014. 7. Additional findings as above. Electronically signed by: Reyes Goldberg M.D. 01/14/2018 1:49 PM Dictated Date/Time: 01/14/2018 1:35 PM
== END | disposition home or self-care (01) ==
LOC: C.CTS 10:58
PROVIDERS: ATTEND Internal Medicine Hematology & Oncology
DX: D61.818 Other pancytopenia (principal); R64 Cachexia